=== PATIENT | female | born 1955 | race Caucasian/White ===

== ENCOUNTER 2016-09-14 08:07 | Inpatient (IN) | payer OTHER, BC ==
[2016-09-14] MEDS ORDERED: Sodium Chloride 0.9% 1,000 ML IV SCH (09:15)
[2016-09-14] MEDS: Lidocaine 1% w/EPINEPHrine 50 ML, Sodium Bicarbonate 5 MEQ in Sodium Chloride 0.9% 950 ML INJECT SCH ×2 (09:45→09:49)
[2016-09-14] MEDS ORDERED: Sodium Tetradecyl Sulfate 1% 20 MG/2 ML SDV ONE (09:47)
[2016-09-14] MEDS ORDERED: Sodium Chloride 0.9% 10 ML ONE (09:47)
[2016-09-14] MEDS ORDERED: Lidocaine 1% with EPINEPHrine 1:100,000 50 ML MDV ONE (09:47)
[2016-09-14] MEDS ORDERED: fentaNYL 100 MCG/2 ML SDV ONE (09:51)
[2016-09-14] MEDS ORDERED: Midazolam 1 MG/ML 2 ML SDV ONE (09:51)
[2016-09-14] MEDS ORDERED: Propofol 200 MG/20 ML SDV ONE (09:51)
[2016-09-14] MEDS ORDERED: Sodium Chloride 0.9% 10 ML SDV ONE (09:52)
[2016-09-14] MEDS ORDERED: methylPREDNISolone Sodium Succinate 125 MG/2 ML SDV IM ONE (10:40)
[2016-09-14] MEDS ORDERED: methylPREDNISolone Sodium Succinate 125 MG/2 ML SDV IV ONE (10:40)
[2016-09-14] MEDS ORDERED: methylPREDNISolone Sodium Succinate 125 MG/2 ML SDV IVPUSH ONE (10:45)
--- NOTE | 2016-09-14 10:49 | CR ---
Chest 1V Frontal HISTORY: Possible aspiration COMPARISON: CT scan 04/21/2015. FINDINGS: Cardiac size normal. Slightly rotated film. No focal infiltrates or effusions. No acute co ngestive change.
[2016-09-14] MEDS ORDERED: Albuterol/Ipratropium 3.0-0.5 MG/3 ML Neb Soln NEB ONE (10:50)
[2016-09-14] MEDS ORDERED: Meropenem 1 GM in Sodium Chloride 0.9% 100 ML IV SCH (11:00)
--- NOTE | 2016-09-14 11:52 | PCM.HP ---
H&P History of Present Illness - General Date of Service: 09/14/16 Admit Problem/Dx: Admission Diagnosis/Problem Admission Diagnosis/Problem Aspiration pneumonia Source of Information: Patient, Family, Provider, RN Notes Reviewed History Limitations: Reports: No Limitations - History of Present Illness Initial Comments - Free Text/Narative: This patient is a 61-year-old woman who I was asked to see in the PAR for management of aspiration. She was admitted today as an outpatient to undergo radiofrequency ablation of varicose veins by Dr. Lua. After she received initial sedating medication for the procedure and almost immediate aspiration of gastric contents. Initial saturations were in the 70s she was brought to the PAR and the surgical procedure was canceled. Initially in the PAR had saturations in the upper 80s to 90. She denies any significant history of cardiac or pulmonary disease. She has known esophageal reflux for which she takes omeprazole on a daily basis. - Related Data Allergies/Adverse Reactions: Allergies Allergy/AdvReac Type Severity Reaction Status Date / Time atorvastatin Allergy Cannot Verified 09/14/16 08:28 Remember nafcillin Allergy Cannot Verified 09/14/16 08:28 Remember Penicillins Allergy Cannot Verified 09/14/16 08:28 Remember Sulfa (Sulfonamide Allergy Cannot Verified 09/14/16 08:28 Antibiotics) Remember morphine AdvReac Intermediate Vomiting Verified 09/14/16 08:28 Home Medications: Home Meds Fluorouracil 1 film TOP BID 07/23/14 [History] Lisinopril [Prinivil] 5 mg PO DAILY 07/23/14 [History] Omeprazole [Prilosec] 20 mg PO DAILY 07/23/14 [History] rOPINIRole [Requip] 0.5 - 1 mg PO BEDTIME 07/23/14 [History] Estradiol [Estrace 0.01% Vaginal Crm] 1 applic TOP ASDIRECTED 07/27/14 [History] Multivitamin with Minerals [Multiple Vitamin] 1 tab PO DAILY 09/12/16 [History] Nystatin/Triamcin [Nystatin-Triamcinolone Cream] 1 film TOP BID 09/12/16 [ History] Triamcinolone Acetonide [Triamcinolone Acetonide 0.1% Crm] 1 film TOP TID [History] Past Medical History HEENT History: Reports: Impaired Vision Other HEENT History: wears glasses Cardiovascular History: Reports: High Cholesterol, Hypertension Gastrointestinal History: Reports: Cholelithiasis, Diverticulosis, Gastritis, GERD, Hiatal Hernia Musculoskeletal History: Reports: Arthritis, Fracture Other Musculoskeletal History: osteomyelitis-right knee Endocrine/Metabolic History: Reports: Obesity/BMI 30+ Oncologic (Cancer) History: Reports: Basal Cell Carcinoma Dermatologic History: Reports: Benign Melanoma - Infectious Disease History Infectious Disease History: Reports: Chicken Pox - Past Surgical History HEENT Surgical History: Reports: Eye Surgery, Oral Surgery, Other (See Below) Other HEENT Surgeries/Procedures: bilat. eye Cardiovascular Surgical History: Reports: None Respiratory Surgical History: Reports: None GI Surgical History: Reports: Cholecystectomy, Colonoscopy, EGD, Hernia, Abdominal Female Surgical History: Reports: None Endocrine Surgical History: Reports: None Musculoskeletal Surgical History: Reports: Arthroscopic Knee, Other (See Below) Other Musculoskeletal Surgeries/Procedures:: tendon surg. on right knee Oncologic Surgical History: Reports: Other (See Below) Other Oncologic Surgeries/Procedures: lower lip/mouth surgery Dermatological Surgical History: Reports: None Social & Family History - Family History Family Medical History: Noncontributory - Tobacco Use Smoking Status *Q: Never Smoker Second Hand Smoke Exposure: No - Caffeine Use Caffeine Use: Reports: Coffee - Alcohol Use Days Per Week of Alcohol Use: 0 - Recreational Drug Use Recreational Drug Use: No H&P Review of Systems - Review of Systems: Review Of Systems: See Below General: Denies: Fever, Chills, Weakness HEENT: Reports: No Symptoms Pulmonary: Reports: Shortness of Breath, Wheezing, Cough. Denies: Pleuritic Chest Pain, Sputum, Hemoptysis Cardiovascular: Reports: No Symptoms Gastrointestinal: Reports: No Symptoms Genitourinary: Reports: No Symptoms Musculoskeletal: Reports: No Symptoms Skin: Reports: No Symptoms Psychiatric: Reports: No Symptoms Neurological: Reports: No Symptoms Hematologic/Lymphatic: Reports: No Symptoms Immunologic: Reports: No Symptoms Exam - Exam Exam: See Below - Vital Signs Vital Signs: Last Vital Signs Temp 97.3 F 09/14/16 10:55 Pulse 75 09/14/16 10:55 Resp 16 09/14/16 10:55 BP 114/74 09/14/16 10:55 Pulse Ox 97 09/14/16 10:55 Weight: 200 lb - Exam Quality Assessment: DVT Prophylaxis General: Alert, Oriented, Cooperative, Moderate Distress HEENT: Conjunctiva Clear, Hearing Intact, Mucosa Moist & [place], Normal Nasal Septum, Posterior Pharynx Clear, Pupils Equal, Pupils Reactive Neck: Supple, Trachea Midline, +2 Carotid Pulse wo Bruit Lungs: Normal Respiratory Effort, Rales, Wheezing. No: Decreased Breath Sounds , Crackles, Rhonchi, Rub, Stridor Cardiovascular: Regular Rate, Regular Rhythm, Normal S1, Normal S2. No: Bradycardia, Tachycardia, Systolic Murmur, Diastolic Murmur Abdomen: Normal Bowel Sounds, Soft Back Exam: Normal Inspection, Full Range of Motion, NT Extremities: 3, Normal Inspection, 10 Neurological: Cranial Nerves Intact, Strength Equal Bilateral, Normal Speech, Normal Tone, Sensation Intact. No: Focal Deficit Neuro Extensive - Mental Status: Alert, Oriented x3, Normal Mood/Affect, Normal Cognition, Memory Intact *Q Meaningful Use (ADM) - VTE *Q VTE Criteria *Q: - VTE Risk Assess *Q Each Risk Factor Represents 1 Point: Age 41 - 59 years, Obesity (BMI greater than 30), Serious Lung Disease Including Pneumonia, Less than 1 Month Total Score 1 Point Risk Factors: 3 Each Risk Factor Represents 2 Points: None Total Score 2 Point Risk Factors: 0 Each Risk Factor Represents 3 Points: None Total Score 3 Point Risk Factors: 0 Each Risk Factor Represents 5 Points: None Total Score 5 Point Risk Factors: 0 Venous Thromboembolism Risk Factor Score *Q: 3 - Stroke *Q Stroke Criteria *Q: - AMI *Q AMI Criteria *Q: Problem List Initiated/Reviewed/Updated: Yes Orders Last 24hrs: Active Orders 24 hr Category Date Time Status Patient Status Manage Transfer [TRANSFER] Routine ADT 09/14/16 11:17 Active Cardiac Monitoring [RC] .As Directed Care 09/14/16 11:17 Active RT Aerosol Therapy [RC] ASDIRECTED Care 09/14/16 10:44 Active Lidocaine 1% w/EPINEPHrine [Xylocaine 1% with Med 09/14/16 10:00 Active EPINEPHrine 1:100,000] 50 ml Sodium Bicarbonate [Sodium Bicarbonate 8.4%] 5 meq Sodium Chloride 0.9% [Normal Saline] 950 ml INJECT Q2H Meropenem [Merrem] 1 gm Med 09/14/16 11:00 Active Sodium Chloride 0.9% [Normal Saline] 100 ml IV Q8H Sodium Chloride 0.9% [Normal Saline] 1,000 ml Med 09/14/16 09:15 Active IV ASDIRECTED Resuscitation Status Routine Resus Stat 09/14/16 11:19 Ordered Medication Orders Lidocaine/Epinephrine 50 ml/Sodium Bicarbonate 5 meq/Sodium Chloride 1,005 mls @ 500 mls/hr INJECT Q2H [facility] Stop: 09/14/16 13:59 Last Infusion: 09/14/16 09:49 Dose: 500 mls/hr Admin: 09/14/16 09:49 Dose: 500 mls/hr Admin: 09/14/16 09:45 Dose: 500 mls/hr Sodium Chloride (Normal Saline) 1,000 mls @ 75 mls/hr IV ASDIRECTED [facility] [place] Last Admin: 09/14/16 08:57 Dose: 75 mls/hr Meropenem 1 gm/ Sodium (Chloride) 100 mls @ 200 mls/hr IV Q8H [facility] [place] Last Admin: 09/14/16 10:40 Dose: 200 mls/hr Assessment/Plan Comment:: ASSESSMENT AND PLAN Aspiration of gastric contents-occurred with initial sedation and prior to surgery. Initially had significant decrease in oxygen saturation, this appears to have recovered somewhat. She is been started on IV antibiotic therapy and the PAR and also given nebulizer treatment. -Admit to ICU for close monitoring of respiratory status -Nebulizer therapy with albuterol, duo nebs, and Pulmicort -Meropenem 1 g IV every 8 hours -Initial labs including ABGs pending Varicose veins-scheduled for RFA today with Dr. Lua -Procedure canceled Esophageal reflux -Protonix 40 mg IV every 12 hours MAINTENANCE ISSUES -DVT prophylaxis;Lovenox 40 mg subcutaneous daily -GI prophylaxis;Protonix as above -Symth catheter;not required -Nutrition;clear liquid diet -Nicotine dependence;not required CODE STATUS-full code ADMISSION STATUS-patient will be admitted to inpatient status, expect at least a 2 night hospital stay for evaluation and management of problems as outlined above. At the time of this admission I do not reasonably expected evaluation and management of this problem will require more than a 96 hour hospital stay. DISPOSITION-anticipate discharge to home after the hospital stay. PRIMARY CARE PROVIDER-Dr. Chavez
[2016-09-14] MEDS ORDERED: Albuterol/Ipratropium 3.0-0.5 MG/3 ML Neb Soln NEB SCH (12:00)
[2016-09-14] MEDS ORDERED: Magnesium Hydroxide 400 MG/5 ML Susp 30 ML Cup PO PRN (12:09)
[2016-09-14] MEDS ORDERED: Albuterol 0.083% 2.5 MG/3 ML Neb Soln NEB PRN (12:09)
[2016-09-14] MEDS ORDERED: Ondansetron 4 MG/2 ML SDV IV PRN (12:09)
[2016-09-14] MEDS ORDERED: oxyCODONE 5 MG Tab PO PRN (12:09)
[2016-09-14] MEDS ORDERED: Sodium Chloride 0.9% 10 ML Syringe FLUSH PRN (12:09)
[2016-09-14] MEDS ORDERED: Polyethylene Glycol 3350 Powder 17 GM Packet PO PRN (12:09)
[2016-09-14] MEDS ORDERED: Docusate Sodium 100 MG Cap PO PRN (12:09)
[2016-09-14] MEDS: Enoxaparin 40 MG/0.4 ML Syringe SUBCUT SCH (12:42)
[2016-09-14] MEDS: Pantoprazole 40 MG Vial IV SCH (12:42)
[2016-09-14] MEDS: Budesonide 0.5 MG/2 ML Neb Susp NEB SCH ×2 (12:49→20:11)
[2016-09-14] MEDS: Albuterol/Ipratropium 3.0-0.5 MG/3 ML Neb Soln NEB SCH ×2 (14:26→20:10)
[2016-09-14] MEDS ORDERED: Benzocaine/Cetylpyridinium/Menthol Lozenge MUCMEM PRN (14:27)
[2016-09-14] MEDS ORDERED: Potassium Chloride 20 MEQ Tab.ER PO ONE (15:00)
[2016-09-14] MEDS ORDERED: Calcium Carbonate 500 MG Tab.Chew PO PRN (16:35)
[2016-09-14] MEDS: Lactated Ringers 1,000 ML IV SCH (16:51)
[2016-09-14] MEDS: Meropenem 1 GM in Sodium Chloride 0.9% 100 ML IV SCH (17:07)
[2016-09-14] MEDS: Acetaminophen 325 MG Tab PO PRN (19:20)
[2016-09-14] MEDS ORDERED: rOPINIRole 1 MG Tab PO SCH (21:00)
[2016-09-15] MEDS: Pantoprazole 40 MG Vial IV SCH (00:35)
[2016-09-15] MEDS: Lactated Ringers 1,000 ML IV SCH (00:37)
[2016-09-15] MEDS: Acetaminophen 325 MG Tab PO PRN (00:42)
[2016-09-15] MEDS: Meropenem 1 GM in Sodium Chloride 0.9% 100 ML IV SCH ×2 (01:41→09:41)
[2016-09-15] MEDS: Budesonide 0.5 MG/2 ML Neb Susp NEB SCH (07:09)
[2016-09-15] MEDS: Albuterol/Ipratropium 3.0-0.5 MG/3 ML Neb Soln NEB SCH ×2 (07:09→10:52)
[2016-09-15 08:07] VITALS: BP 145/65
[2016-09-15] MEDS ORDERED: Lisinopril 5 MG Tab PO SCH (09:00)
--- NOTE | 2016-09-15 09:14 | CR ---
Chest 2V HISTORY: Follow-up aspiration. COMPARISON: Chest x-ray 09/14/2016. FINDINGS: Cardiac size is stable. Pulmonary vessels normal distributed. No focal infiltrates or effu sions.
--- NOTE | 2016-09-15 09:46 | PCM.DCSUM1 ---
Discharge Summary - Hospital Course Brief History: Ms. Posey is a 61-year-old woman who was admitted to the hospital for further evaluation and management of an episode of aspiration that occurred prior to outpatient surgery. - Discharge Data Discharge Date: 09/15/16 Discharge Disposition: Home, Self-Care 01 Condition: Fair - Discharge Diagnosis/Problem(s) (1) Aspiration into airway SNOMED Code(s): 411000671 ICD Code: T17.908A - UNSP FB IN RESP TRACT, PART UNSP CAUSING OTH INJURY, INIT Status: Acute Current Visit: Yes - Patient Summary/Data Hospital Course: Ms. Posey is a 61-year-old woman who had been scheduled for outpatient RFA for management of varicose veins. In the process of receiving sedation prior to the surgery she had an episode of aspiration complicated by hypoxia. Initially had oxygen saturations into the 70s, in the PAR was given antibiotic therapy immediately with meropenem, as well as IV Solu-Medrol, and nebulizer therapy. Initial chest x-ray showed no obvious infiltrates or inflammation in the lungs. She was admitted to the intensive care unit for management and monitoring of her respiratory status. By the time she arrived in the intensive care unit her oxygen saturations were in the mid to upper 90s with supplemental oxygen. IV fluids were used for hydration and she remained on meropenem 1 g IV every 8 hours. Nebulizer therapy was used as needed. By the following morning she was feeling well with no significant respiratory symptoms. Follow-up chest x-ray again showed no evidence of obvious infiltrates. White blood cell count was noted to be elevated at 15,000 but this was thought to be secondary to the Solu- Medrol that she'd received in the PAR. Cover for possibility of ongoing infection she will be discharged home with clindamycin 300 mg 4 times daily. She will take probiotics 2 tablets twice daily while on the clindamycin and for several days afterwards. Activity will be as tolerated and she will resume her usual diet. Follow-up appointment will be scheduled with her primary care provider within one week. She is instructed to return to the emergency department immediately if she notes fever cough or increase in shortness of breath. - Patient Instructions Diet: Usual Diet as Tolerated Activity: As Tolerated Other/Special Instructions: Please schedule follow-up appointment with primary care provider within one week. - Discharge Plan Prescriptions/Med Rec: Clindamycin HCl 300 mg PO QID #28 capsule L.acidoph,Paracasei, B.lactis [Probiotic] 2 each PO BID #100 capsule Home Medications: Home Meds Fluorouracil 1 film TOP BID 07/23/14 [History] Lisinopril [Prinivil] 5 mg PO DAILY 07/23/14 [History] Omeprazole [Prilosec] 20 mg PO DAILY 07/23/14 [History] rOPINIRole [Requip] 0.5 - 1 mg PO BEDTIME 07/23/14 [History] Estradiol [Estrace 0.01% Vaginal Crm] 1 applic TOP ASDIRECTED 07/27/14 [History] Multivitamin with Minerals [Multiple Vitamin] 1 tab PO DAILY 09/12/16 [History] Nystatin/Triamcin [Nystatin-Triamcinolone Cream] 1 film TOP BID 09/12/16 [ History] Triamcinolone Acetonide [Triamcinolone Acetonide 0.1% Crm] 1 film TOP TID [History] Clindamycin HCl 300 mg PO QID #28 capsule 09/15/16 [Rx] L.acidoph,Paracasei, B.lactis [Probiotic] 2 each PO BID #100 capsule 09/15/16 [ Rx] Referrals: Sheldon Chavez MD [Primary Care Provider] - (Please schedule appointment within 1 week, for follow-up of aspiration.) - Patient Data Vitals - Most Recent: Last Vital Signs Temp 98.1 F 09/15/16 08:00 Pulse 102 H 09/15/16 08:00 Resp 19 09/15/16 08:00 BP 145/65 H 09/15/16 08:00 Pulse Ox 93 L 09/15/16 08:00 Weight - Most Recent: 207 lb 11.195 oz I&O - Last 24 hours: Intake & Output 09/14/16 09/15/16 09/15/16 22:59 06:59 14:59 Output Total 1400 900 600 Balance -1400 -900 -600 Lab Results - Last 24 hrs: Laboratory Results - last 24 hr 09/14/16 09/14/16 09/14/16 Range/Units 12:09 12:25 12:25 WBC 9.0 (4.5-11.0) K/uL RBC 4.84 (3.30-5.50) M/uL Hgb 13.3 (12.0-15.0) g/dL Hct 41.1 (36.0-48.0) % MCV 85 (80-98) fL MCH 28 (27-31) pg MCHC 32 (32-36) % Plt Count 230 (150-400) K/uL Neut % (Auto) 84 H (36-66) % Lymph % (Auto) 13 L (24-44) % [place] % (Auto) 2 (2-6) % Eos % (Auto) 1 L (2-4) % Baso % (Auto) 0 (0-1) % Puncture Site Lt radial ABG pH 7.389 (7.350-7.450) ABG pCO2 40.3 (35.0-42.0) mmHg ABG pO2 83.9 (75.0-100.0) mmHg ABG HCO3 23.8 (22.0-26.0) mmol/L ABG Total CO2 21.3 (21.0-25.0) mmol/L ABG O2 Saturation 95.7 (95.0-98.0) % ABG O2 Content 17.6 (15.0-23.0) %vol ABG Base Excess -0.5 mm/L ABG Hemoglobin 13.2 (12.0-16.0) g/dL ABG Oxyhemoglobin 94.6 % ABG Carboxyhemoglobin 0.2 (0.0-1.6) % ABG Methemoglobin 1.0 % Rashid Test Passed O2 Delivery Device Nasal cannula Oxygen Flow Rate 2 L Sodium 141 (140-148) mmol/L Potassium 3.5 L (3.6-5.2) mmol/L Chloride 105 (100-108) mmol/L Carbon Dioxide 28 (21-32) mmol/L Anion Gap 11.5 (5.0-14.0) mmol/L BUN 12 (7-18) mg/dL Creatinine 1.0 (0.6-1.0) mg/dL Est Cr Clr Drug Dosing 58.91 mL/min Estimated GFR (MDRD) 57 L (>60) Glucose 116 H (74-106) mg/dL Calcium 8.5 (8.5-10.1) mg/dL Magnesium 1.9 (1.8-2.4) mg/dL Total Bilirubin 0.4 (0.2-1.0) mg/dL AST 19 (15-37) U/L ALT 24 (12-78) U/L Alkaline Phosphatase 68 (46-116) U/L C-Reactive Protein 0.45 H (0.0-0.3) mg/dL Total Protein 6.9 (6.4-8.2) g/dL Albumin 3.5 (3.4-5.0) g/dL Globulin 3.4 (2.3-3.5) g/dL Albumin/Globulin Ratio 1.0 L (1.2-2.2) 09/15/16 09/15/16 Range/Units 05:00 05:00 WBC 15.5 H (4.5-11.0) K/uL RBC 4.62 (3.30-5.50) M/uL Hgb 12.6 (12.0-15.0) g/dL Hct 39.2 (36.0-48.0) % MCV 85 (80-98) fL MCH 27 (27-31) pg MCHC 32 (32-36) % Plt Count 244 (150-400) K/uL Neut % (Auto) 85 H (36-66) % Lymph % (Auto) 11 L (24-44) % [place] % (Auto) 4 (2-6) % Eos % (Auto) 0 L (2-4) % Baso % (Auto) 0 (0-1) % Puncture Site ABG pH (7.350-7.450) ABG pCO2 (35.0-42.0) mmHg ABG pO2 (75.0-100.0) mmHg ABG HCO3 (22.0-26.0) mmol/L ABG Total CO2 (21.0-25.0) mmol/L ABG O2 Saturation (95.0-98.0) % ABG O2 Content (15.0-23.0) %vol ABG Base Excess mm/L ABG Hemoglobin (12.0-16.0) g/dL ABG Oxyhemoglobin % ABG Carboxyhemoglobin (0.0-1.6) % ABG Methemoglobin % Rashid Test O2 Delivery Device Oxygen Flow Rate L Sodium 143 (140-148) mmol/L Potassium 4.8 (3.6-5.2) mmol/L Chloride 108 (100-108) mmol/L Carbon Dioxide 29 (21-32) mmol/L Anion Gap 5.9 (5.0-14.0) mmol/L BUN 11 (7-18) mg/dL Creatinine 1.0 (0.6-1.0) mg/dL Est Cr Clr Drug Dosing 58.91 mL/min Estimated GFR (MDRD) 57 L (>60) Glucose 113 H (74-106) mg/dL Calcium 9.1 (8.5-10.1) mg/dL Magnesium (1.8-2.4) mg/dL Total Bilirubin (0.2-1.0) mg/dL AST (15-37) U/L ALT (12-78) U/L Alkaline Phosphatase (46-116) U/L C-Reactive Protein (0.0-0.3) mg/dL Total Protein (6.4-8.2) g/dL Albumin (3.4-5.0) g/dL Globulin (2.3-3.5) g/dL Albumin/Globulin Ratio (1.2-2.2) Med Orders - Current: Current Medications Acetaminophen (Tylenol) 650 mg PO Q4H PRN PRN Reason: Pain (Mild 1-3)/fever Last Admin: 09/15/16 00:42 Dose: 650 mg Albuterol (Proventil Neb Soln) 2.5 mg NEB Q2H PRN PRN Reason: Shortness Of Breath/wheezing Albuterol/Ipratropium (Duoneb 3.0-0.5 Mg/3 Ml) 3 ml NEB QIDRT [facility] Last Admin: 09/15/16 07:09 Dose: 3 ml Benzocaine/Menthol (Cepacol Sore Throat) 1 lozenge MUCMEM 5XDAY PRN PRN Reason: Sore Throat Budesonide (Pulmicort) 0.5 mg NEB BIDRT [facility] Last Admin: 09/15/16 07:09 Dose: 0.5 mg Calcium Carbonate/Glycine (Tums) 1,000 mg PO Q2H PRN PRN Reason: Indigestion Last Admin: 09/14/16 17:06 Dose: 1,000 mg Docusate Sodium (Colace) 100 mg PO BID PRN PRN Reason: Constipation Enoxaparin Sodium (Lovenox) 40 mg SUBCUT DAILY [facility] Last Admin: 09/14/16 12:42 Dose: 40 mg Meropenem 1 gm/ Sodium (Chloride) 100 mls @ 200 mls/hr IV Q8H [facility] Last Admin: 09/15/16 09:41 Dose: 200 mls/hr Lactated Ringer's (Ringers, Lactated) 1,000 mls @ 125 mls/hr IV ASDIRECTED [facility] Last Admin: 09/15/16 00:37 Dose: 125 mls/hr Lisinopril (Prinivil) 5 mg PO DAILY [facility] Magnesium Hydroxide (Milk Of Magnesia) 30 ml PO Q12H PRN PRN Reason: Constipation Ondansetron HCl (Zofran) 4 mg IV Q4H PRN PRN Reason: Nausea/Vomiting Oxycodone HCl (Oxycodone) 5 mg PO Q4H PRN PRN Reason: Pain (moderate 4-6) Pantoprazole Sodium (Protonix Iv) 40 mg IV Q12H [facility] Last Admin: 09/15/16 00:35 Dose: 40 mg Polyethylene Glycol (Miralax) 17 gm PO DAILY PRN PRN Reason: Constipation Ropinirole HCl (Requip) 1 mg PO BEDTIME [facility] Last Admin: 09/14/16 20:11 Dose: 1 mg Sodium Chloride (Saline Flush) 10 ml FLUSH ASDIRECTED PRN PRN Reason: Keep Vein Open Discontinued Medications Albuterol/Ipratropium (Duoneb 3.0-0.5 Mg/3 Ml) 3 ml NEB ONETIME ONE Stop: 09/14/16 10:51 Last Admin: 09/14/16 10:49 Dose: 3 ml Albuterol/Ipratropium (Duoneb 3.0-0.5 Mg/3 Ml) 3 ml NEB QIDRT [facility] Fentanyl (Sublimaze) Confirm Administered Dose 100 mcg .ROUTE .STK-MED ONE Stop: 09/14/16 09:52 Heparin Sodium (Porcine) (Heparin Lock Flush 100 Units/Ml) Confirm Administered Dose 3,000 units .ROUTE .STK-MED ONE Stop: 09/14/16 09:48 Last Admin: 09/14/16 09:50 Dose: 3,000 units Sodium Chloride (Normal Saline) 1,000 mls @ 75 mls/hr IV ASDIRECTED [facility] Last Admin: 09/14/16 08:57 Dose: 75 mls/hr Sodium Chloride (Normal Saline) Confirm Administered Dose 10 mls @ as directed .ROUTE .STK-MED ONE Stop: 09/14/16 09:48 Meropenem 1 gm/ Sodium (Chloride) 100 mls @ 200 mls/hr IV Q8H [facility] Last Admin: 09/14/16 10:40 Dose: 200 mls/hr Lidocaine/Epinephrine (Xylocaine 1% With Epinephrine 1:100,000) Confirm Administered Dose 50 ml .ROUTE .STK-MED ONE Stop: 09/14/16 09:48 Methylprednisolone Sodium Succinate (Solu-Medrol) 62.5 mg IVPUSH ONETIME ONE Stop: 09/14/16 10:46 Last Admin: 09/14/16 10:33 Dose: 62.5 mg Midazolam HCl (Versed 1 Mg/Ml) Confirm Administered Dose 2 mg .ROUTE .STK-MED ONE Stop: 09/14/16 09:52 Potassium Chloride (Klor-Con M20) 40 meq PO ONETIME ONE Stop: 09/14/16 15:01 Last Admin: 09/14/16 15:12 Dose: 40 meq Propofol (Diprivan 20 Ml) Confirm Administered Dose 200 mg .ROUTE .STK-MED ONE Stop: 09/14/16 09:52 Sodium Tetradecyl Sulfate (Sotradecol) Confirm Administered Dose 20 mg .ROUTE .STK-MED ONE Stop: 09/14/16 09:48 *Q Meaningful Use (DIS) - VTE *Q VTE Criteria *Q: - Stroke *Q Stroke Criteria *Q: - AMI *Q AMI Criteria *Q:
[2016-09-15] MEDS: Enoxaparin 40 MG/0.4 ML Syringe SUBCUT SCH (11:26)
== END 2016-09-15 11:15 | disposition home or self-care (01) | DRG 143 ==
LOC: JP.SDS 08:07 → JP.SDSSCHI 08:07 → EDSTATUS 10:00 → JP.ICU 11:17
PROVIDERS: ADMIT Surgery; ATTEND Surgery
DX: T17.908A Unspecified foreign body in respiratory tract, part unspecified causing other injury, initial encounter (principal); I83.90 Asymptomatic varicose veins of unspecified lower extremity; I10 Essential (primary) hypertension; K21.9 Gastro-esophageal reflux disease without esophagitis; K44.9 Diaphragmatic hernia without obstruction or gangrene; H54.7 Unspecified visual loss; Z85.820 Personal history of malignant melanoma of skin; Z85.828 Personal history of other malignant neoplasm of skin; Z88.1 Allergy status to other antibiotic agents; Z88.5 Allergy status to narcotic agent; Z88.0 Allergy status to penicillin; Z88.2 Allergy status to sulfonamides; Z88.8 Allergy status to other drugs, medicaments and biological substances; Z53.8 Procedure and treatment not carried out for other reasons; X58.XXXA Exposure to other specified factors, initial encounter; Y92.234 Operating room of hospital as the place of occurrence of the external cause
CPT/HCPCS: 36415; 36600; 71010; 71010-26; 71020; 71020-26; 80048; 80053; 82803; 83735; 85025; 86140; 87040; 94640-76; A9270-GY; C9113; J1642; J1650; J2185; J2250; J2704; J2930; J3010; J3490; J7030; J7040; J7050; J7120; J7620

== ENCOUNTER 2017-08-21 07:49 | Day surgery (SDC) | payer BC ==
[~2017-08-21 07:49] MED LIST: Acetaminophen 500 MG Tab PO ONE
[2017-08-21] MEDS ORDERED: Dextrose 5%-Lactated Ringers 1,000 ML IV SCH (08:15)
[2017-08-21] MEDS ORDERED: Bupivacaine 0.5%/EPINEPHrine 1:200,000 50 ML MDV ONE (08:58)
[2017-08-21] MEDS ORDERED: ceFAZolin 2 GM in Premix Bag 1 BAG IV ONE (09:15)
[2017-08-21] MEDS ORDERED: Neostigmine Methylsulfate 1 MG/ML 5 ML Syringe ONE (09:35)
[2017-08-21] MEDS ORDERED: Propofol 200 MG/20 ML SDV ONE (09:35)
[2017-08-21] MEDS ORDERED: Glycopyrrolate 0.2 MG/ML 5 ML MDV ONE (09:35)
[2017-08-21] MEDS ORDERED: Dexamethasone 4 MG/ML SDV ONE (09:35)
[2017-08-21] MEDS ORDERED: Succinylcholine 200 MG/10 ML MDV ONE (09:35)
[2017-08-21] MEDS ORDERED: fentaNYL 250 MCG/5 ML SDV ONE (09:35)
[2017-08-21] MEDS ORDERED: Rocuronium 50 MG/5 ML Vial ONE (09:35)
[2017-08-21] MEDS ORDERED: Ondansetron 4 MG/2 ML SDV ONE (09:35)
[2017-08-21] MEDS ORDERED: Mupirocin Oint 22 GM Tube TOP ONE (11:30)
[2017-08-21] MEDS ORDERED: Ondansetron 4 MG/2 ML SDV IVPUSH ONE (13:05)
[2017-08-21 13:22] VITALS: BP 108/62
--- NOTE | 2017-08-28 09:15 | OR ---
DATE OF PROCEDURE: 08/21/2017 PREOPERATIVE DIAGNOSIS: Soft tissue mass, right chest wall and adjacent upper abdominal wall. POSTOPERATIVE DIAGNOSIS: Subfascial lipoma, right anterior chest wall. OPERATIVE PROCEDURE: Excision of subfascial lipoma, right anterior chest wall ([id number]). ANESTHESIA: General. SIDE LASTER TACK: JULIANO Beasley. INDICATION FOR PROCEDURE: This is a 62-year-old presenting with a soft tissue mass located in the right lower anterior chest wall. When the patient is sitting, this appears to extend somewhat onto the anterior abdominal wall, and the idea that this might be a trocar hernia has also been entertained. Plan is to proceed with exploration of the area with removal of any soft tissue masses identified, along with hernia repair if necessary. Potential risks including bleeding, infection, possible recurrence of the process over time were reviewed, and the patient wishes to proceed. The patient had a serious aspiration episode with the previous procedure, in which she received IV sedation, and to provide adequate airway control, will proceed with a general anesthetic in this case. DETAILS OF PROCEDURE: The patient was taken to the operating room and placed in a supine position. After general endotracheal anesthesia was induced, the right anterior chest wall and upper abdomen were prepped and draped. The area of concern had been mapped out in ACU, and a transversely oriented incision more or less running parallel to the costal margin was made and carried down through the skin and subcutaneous tissue. In the plane underlying the investing fascia, then a soft tissue mass consistent with lipoma was encountered. This was gradually dissected free and removed and what appeared to be an intact manner. Small amount of surrounding normal fat at certain locations was also taken. The skin was directly down onto the chest wall musculature, i.e. was between the fascia and the actual muscle itself, and upon removal, it was measured 7 cm. The wound was then inspected, no bleeding was noted, and the incision was closed with 2 layers of 3-0 Vicryl stitch deep and then anibal for the skin. Dressing was applied. The patient was taken to the recovery room in satisfactory condition. Jaxson Tatum MD /[id number]
== END 2017-08-21 13:45 | disposition home or self-care (01) ==
LOC: JP.SDS 07:49
PROVIDERS: ATTEND Surgery
DX: D17.1 Benign lipomatous neoplasm of skin and subcutaneous tissue of trunk (principal); I10 Essential (primary) hypertension; E66.9 Obesity, unspecified; K21.9 Gastro-esophageal reflux disease without esophagitis
CPT/HCPCS: 21554; 36415; 80053; 83735; 84100; 85027; 88304; A9270; J0330; J0690; J1100; J2405; J2704; J2710; J3010; J7042; J2020

== ENCOUNTER 2019-10-06 06:01 | Inpatient (IN) | payer BC ==
[2019-10-06] MEDS ORDERED: Lactated Ringers 1,000 ML IV SCH (06:30)
[2019-10-06] MEDS: Nozin Nasal Sanitizer NASBOTH SCH ×3 (06:47→20:44)
[2019-10-06] MEDS ORDERED: Povidone-Iodine 10% Soln 118.25 ML Bottle ONE ×2 (06:50→09:09)
[2019-10-06] MEDS ORDERED: Midazolam 1 MG/ML 2 ML SDV ONE (07:33)
[2019-10-06] MEDS ORDERED: fentaNYL 100 MCG/2 ML SDV ONE (07:33)
[2019-10-06] MEDS ORDERED: Scopolamine 1.5 MG Transdermal Patch TRDERM SCH (08:00)
[2019-10-06] MEDS ORDERED: Tranexamic Acid 1,000 MG in Sodium Chloride 0.9% 50 ML IV ONE (08:00)
[2019-10-06] MEDS ORDERED: Ondansetron 4 MG/2 ML SDV ONE (08:18)
[2019-10-06] MEDS ORDERED: Acetaminophen/HYDROcodone 325-5 MG Tab PO PRN (09:25)
[2019-10-06] MEDS ORDERED: Ondansetron 4 MG/2 ML SDV IVPUSH PRN (09:25)
[2019-10-06] MEDS ORDERED: Magnesium Hydroxide 400 MG/5 ML Susp 30 ML Cup PO PRN (09:25)
[2019-10-06] MEDS ORDERED: Furosemide 20 MG Tab PO PRN (09:32)
[2019-10-06] MEDS ORDERED: HYDROmorphone 1 MG/ML Syringe IVPUSH PRN (09:34)
[2019-10-06] MEDS ORDERED: Meperidine PF 100 MG/ML Syringe IM ONE (09:51)
[2019-10-06] MEDS: SCOPOLAMINE PATCH CHECK TOP SCH (10:58)
[2019-10-06] MEDS: Acetaminophen/oxyCODONE 325-5 MG Tab PO PRN ×3 (11:24→20:21)
[2019-10-06] MEDS ORDERED: Tranexamic Acid 1,000 MG in Sodium Chloride 0.9% 50 ML IV SCH (12:00)
[2019-10-06] MEDS: Ketorolac 30 MG/ML SDV IVPUSH SCH ×3 (12:13→23:04)
[2019-10-06] MEDS: Sodium Chloride 0.9% 1,000 ML IV SCH ×2 (13:45→22:47)
--- NOTE | 2019-10-06 14:14 | CR ---
Knee 1V or 2V Rt CLINICAL HISTORY: Total knee postoperative FINDINGS: Patient has undergone recent total knee arthroplasty. Components appear well seated. There is intra-articular and subcutaneous cutaneous air. IMPRESSION: STATUS post recent total knee arthroplasty
[2019-10-06] MEDS: Docusate Sodium 100 MG Cap PO SCH (20:44)
[2019-10-06] MEDS: rOPINIRole 0.5 MG Tab PO SCH (20:44)
[2019-10-06] MEDS: Simvastatin 20 MG Tab PO SCH (21:32)
[2019-10-06] MEDS: Lisinopril 5 MG Tab PO SCH (21:55)
[2019-10-07] MEDS: Acetaminophen/oxyCODONE 325-5 MG Tab PO PRN ×3 (03:36→21:45)
[2019-10-07] MEDS: Ketorolac 30 MG/ML SDV IVPUSH SCH ×4 (05:01→23:53)
[2019-10-07] MEDS: Calcium Carbonate 500 MG Tab.Chew PO PRN ×2 (05:35→11:58)
[2019-10-07] MEDS ORDERED: Sodium Chloride 0.9% 500 ML IV ONE (05:36)
[2019-10-07] MEDS: Nozin Nasal Sanitizer NASBOTH SCH ×2 (08:03→21:43)
[2019-10-07] MEDS: Pantoprazole 40 MG Tab.CR PO SCH (08:03)
[2019-10-07] MEDS ORDERED: Lisinopril 5 MG Tab PO SCH (09:00)
[2019-10-07] MEDS ORDERED: Simvastatin 20 MG Tab PO SCH (09:00)
[2019-10-07] MEDS: SCOPOLAMINE PATCH CHECK TOP SCH (09:21)
[2019-10-07] MEDS: Docusate Sodium 100 MG Cap PO SCH ×2 (09:22→21:45)
[2019-10-07] MEDS: Enoxaparin 30 MG/0.3 ML Syringe SUBCUT SCH (09:23)
[2019-10-07] MEDS: Sodium Chloride 0.9% 1,000 ML IV SCH (11:45)
[2019-10-07] MEDS: Simvastatin 20 MG Tab PO SCH (21:46)
[2019-10-07] MEDS: Lisinopril 5 MG Tab PO SCH (21:46)
[2019-10-07] MEDS: rOPINIRole 0.5 MG Tab PO SCH (21:46)
[2019-10-08] MEDS: Ketorolac 30 MG/ML SDV IVPUSH SCH (05:53)
[2019-10-08] MEDS: Pantoprazole 40 MG Tab.CR PO SCH (07:29)
[2019-10-08] MEDS: Nozin Nasal Sanitizer NASBOTH SCH (10:00)
[2019-10-08] MEDS: Docusate Sodium 100 MG Cap PO SCH (10:01)
[2019-10-08] MEDS: Enoxaparin 30 MG/0.3 ML Syringe SUBCUT SCH (10:01)
[2019-10-08] MEDS: SCOPOLAMINE PATCH CHECK TOP SCH (10:02)
[2019-10-08] MEDS: Acetaminophen/oxyCODONE 325-5 MG Tab PO PRN (11:54)
[2019-10-08 11:57] VITALS: BP 98/55; PULSE 80
--- NOTE | 2019-10-18 20:30 | OR ---
DATE OF PROCEDURE: 10/06/2019 SURGEON: Jona Smith MD PREOPERATIVE DIAGNOSIS: Osteoarthritis, right knee. POSTOPERATIVE DIAGNOSIS: Osteoarthritis, right knee. PROCEDURE: Right total knee arthroplasty using Svetlana Persona components with a size 7 femur, D tibia, 12 mm polyethylene, and 32 mm patella. ANESTHESIA: Spinal with sedation. INDICATIONS: Yeimi is a 64-year-old female with a history of progressive pain in her right knee for the past several months. She has a long history of right knee problems dating back several years, including a tibial tubercle osteotomy and history of osteomyelitis of the tibial metaphysis following this. She has not had any flare-ups of the osteomyelitis for years. She has been having increasing pain in the anterior joint and medially. Recent imaging and examination are consistent with progressive articular cartilage loss and she now presents for right total knee arthroplasty. Risks, benefits, potential complications of the procedure were discussed. PROCEDURE IN DETAIL: After adequate anesthesia was obtained, patient was placed in the supine with a tourniquet about the right upper thigh. Right leg was prepped and draped in a sterile fashion. Leg was exsanguinated and tourniquet inflated to 300 mmHg pressure. A longitudinal incision was made over the patella, carried down through the subcutaneous tissue and hemostasis was obtained with electrocautery. A medial parapatellar arthrotomy was performed. Some scar tissue and thickening of the capsule and patellar tendon are noted. Anterior horn of the medial meniscus was excised and a medial release was performed. Soft tissues were excised from the periphery of the patella and oscillating saw was used to make a posterior patella cut. Knee was flexed and the intramedullary canal of the femur was drilled. The intramedullary guide was placed and the distal femur was then cut. Attention was turned to the tibia. The extramedullary tibial alignment jig was placed and aligned and secured. The proximal tibia was then cut with an oscillating saw and remaining medial and lateral meniscus were excised. Attention was returned to the femur, which was measured to a size 7. The 7 cutting jig is secured to the femur, distal femoral cuts were made including an intercondylar notch cut for a posterior cruciate-sacrificing component. The femoral trial was placed with good fit. The tibia is then sized to D tray which is secured with pins. Bushing is placed and the tibia is drilled and the pins are then cut completing preparation of the tibial metaphysis. Knee was thoroughly irrigated. The bone surfaces are dried. Components were cemented in place. Excess cement was removed. The knee was held in full extension as the cement cured with a trial insert. After the cement was set, the knee was taken through range of motion and the 12 mm polyethylene provided balance in flexion and extension with full extension and the patella tracked well without lateral release. The trial was removed. The knee was irrigated again. Polyethylene was snapped into position, and the knee was then irrigated with a dilute Betadine solution, which was left in place for 2-1/2 minutes. This was irrigated and the knee was then closed with two Ethibond in interrupted fashion. Skin was closed with 2-0 Vicryl and a running 3-0 Monocryl. Steri-Strips were applied. Sterile dressing was then placed with a light compressive dressing. Patient tolerated procedure well and there were no complications. Taken from the operating room in stable condition. Jona Smith MD /[id number]
== END 2019-10-08 13:00 | disposition home or self-care (01) | DRG 302 ==
LOC: JP.SDS 06:01 → JP.MS 09:25 → JP.SDS 10-07 12:00 → JP.MS 10-07 12:00
PROVIDERS: ADMIT Specialist; ATTEND Specialist
PROC: 0SRC0J9 Replacement of Right Knee Joint with Synthetic Substitute, Cemented, Open Approach (ICD-10-PCS; principal; 2019-10-07)
DX: M17.11 Unilateral primary osteoarthritis, right knee (principal); E78.00 Pure hypercholesterolemia, unspecified; I10 Essential (primary) hypertension; G25.81 Restless legs syndrome; K21.9 Gastro-esophageal reflux disease without esophagitis; E78.5 Hyperlipidemia, unspecified; E66.9 Obesity, unspecified; Z88.5 Allergy status to narcotic agent; Z88.0 Allergy status to penicillin; Z88.2 Allergy status to sulfonamides; Z85.3 Personal history of malignant neoplasm of breast; Z68.35 Body mass index [BMI] 35.0-35.9, adult
CPT/HCPCS: 36415; 73560-26-RT; 73560-RT; 86850; 86900; 86901; 97110-GP; 97116-GP; 97161-GP; 97530-GP; 97535-GP; A9270-GY; C1713; C1776; J1650; J1885; J2175; J2250; J2405; J3010; J3370; J7030; J7040; J7050; J7120

== ENCOUNTER 2019-11-25 07:20 | Inpatient (IN) | payer BC ==
[~2019-11-25 07:20] MED LIST changes: -Acetaminophen 500 MG Tab PO ONE; +Dexamethasone 4 MG/ML SDV ONE; +Glycopyrrolate 0.2 MG/ML 5 ML MDV ONE; +Neostigmine Methylsulfate 1 MG/ML 5 ML Syringe ONE; +Ondansetron 4 MG/2 ML SDV ONE; +Propofol 200 MG/20 ML SDV ONE; +Rocuronium 50 MG/5 ML Vial ONE; +Succinylcholine 200 MG/10 ML MDV ONE; +fentaNYL 250 MCG/5 ML SDV ONE
[2019-11-25] MEDS ORDERED: Acetaminophen 500 MG Tab PO ONE (07:45)
[2019-11-25] MEDS: Dextrose 5%-Lactated Ringers 1,000 ML IV SCH ×2 (08:26→13:07)
[2019-11-25] MEDS ORDERED: Ketamine 50 MG in Sodium Chloride 0.9% 49.5 ML IV SCH (09:00)
[2019-11-25] MEDS ORDERED: Ketamine 500 MG/5 ML MDV IV SCH (09:00)
[2019-11-25] MEDS: cefOXitin 2 GM in Sodium Chloride 0.9% 50 ML IV ONE ×2 (09:08→13:07)
[2019-11-25] MEDS ORDERED: Labetalol 20 MG/4 ML Syringe ONE (09:58)
[2019-11-25] MEDS ORDERED: fentaNYL 100 MCG/2 ML SDV ONE (10:18)
[2019-11-25] MEDS ORDERED: HYDROmorphone 1 MG/ML Syringe IV PRN (12:00)
[2019-11-25] MEDS ORDERED: Ondansetron 4 MG/2 ML SDV IVPUSH PRN (12:00)
[2019-11-25] MEDS ORDERED: hydrOXYzine HCL 100 MG/2 ML SDV IM PRN (12:00)
[2019-11-25] MEDS ORDERED: HYDROmorphone 0.5 MG/0.5 ML Syringe IVPUSH PRN (12:00)
[2019-11-25] MEDS: HYDROmorphone 2 MG Tab PO PRN ×2 (13:56→22:26)
[2019-11-25] MEDS: Metoclopramide 10 MG/2 ML SDV IVPUSH SCH ×2 (13:58→21:01)
[2019-11-25] MEDS ORDERED: Pantoprazole 40 MG Vial IVPUSH SCH (14:00)
[2019-11-25] MEDS: ceFAZolin 2 GM in Premix Bag 1 BAG IV SCH ×2 (15:44→23:08)
[2019-11-25] MEDS: rOPINIRole 0.5 MG Tab PO SCH (21:01)
[2019-11-26] MEDS: Dextrose 5%-Lactated Ringers 1,000 ML IV SCH
[2019-11-26] MEDS: Acetaminophen 325 MG Tab PO PRN ×5 (01:47→18:35)
[2019-11-26] MEDS: Metoclopramide 10 MG/2 ML SDV IVPUSH SCH ×2 (06:01→13:31)
[2019-11-26] MEDS ORDERED: Ondansetron 4 MG Tab.DIS PO PRN (07:13)
[2019-11-26] MEDS ORDERED: Dextrose 5%-Lactated Ringers 1,000 ML IV SCH (07:15)
--- NOTE | 2019-11-26 07:54 | PN ---
DATE OF SERVICE: 11/26/2019 SUBJECTIVE: Yeimi is postoperative day 1. She reports her pain is controlled. She is having some left shoulder pain, and Tylenol and ice packs are helping resolve that. Vital signs have been stable, been afebrile, up ambulating, has no other questions or concerns. OBJECTIVE: GENERAL: Yeimi Posey is a pleasant 64-year-old female. VITAL SIGNS: TPR at 0658, 97.4, 82, 16, and blood pressure 144/84. HEENT: Negative. NECK: Supple. HEART: Regular rate and rhythm. LUNGS: Clear. ABDOMEN: Dressings dry and intact. Abdominal binder is on. EXTREMITIES: Without peripheral edema. ASSESSMENT: 1. Esophagogastroduodenoscopy. 2. Laparoscopic Karlos fundoplication and repair of paraesophageal diaphragmatic hernia with mesh for gastroesophageal reflux disease with paraesophageal hernia refractory to medical management. Date of procedure 11/25/2019. Surgeon: Jaxson Tatum MD. PLAN: 1. Decrease IV to 100 mL per hour. 2. Dressing off, may shower. 3. Consult dietitian. 4. Zofran ODT 4 mg q.4 hours p.r.n. nausea. 5. Continue use of incentive spirometer. May saline lock if oral intake adequate. 6. We will evaluate p.r.n. or in a.m. Kavya Davis PA-C /[id number]
[2019-11-26] MEDS: ceFAZolin 2 GM in Premix Bag 1 BAG IV SCH (08:04)
[2019-11-26] MEDS: Furosemide 20 MG Tab PO SCH (08:06)
[2019-11-26] MEDS: Lisinopril 5 MG Tab PO SCH (08:06)
[2019-11-26] MEDS: Pantoprazole 40 MG Tab.CR PO SCH (13:52)
[2019-11-26] MEDS: rOPINIRole 0.5 MG Tab PO SCH (20:06)
[2019-11-27] MEDS: Acetaminophen 325 MG Tab PO PRN ×3 (00:44→19:43)
[2019-11-27] MEDS: Pantoprazole 40 MG Tab.CR PO SCH (07:24)
--- NOTE | 2019-11-27 08:36 | DISCH ---
ADMISSION DIAGNOSES: Gastroesophageal reflux disease refractory to medical management, hypertension, osteoarthritis, and history of basal cell carcinoma. PROCEDURES: 1. Esophagogastroduodenoscopy. 2. Laparoscopic Karlos fundoplication and repair of paraesophageal diaphragmatic hernia with mesh. 3. Gastroesophageal reflux disease with periesophageal diaphragmatic hernia refractory to medical management. DATE OF PROCEDURE: 11/25/2019. SURGEON: Jaxson Tatum MD. HISTORY: Yeimi Posey is a pleasant 64-year-old female with GERD refractory to medical management. After preoperative evaluation and discussion of possible risks and possible complications, she wished to proceed with surgical procedure. HOSPITAL COURSE: Yeimi had her surgery on 11/25/2019. She had no operative complications. On postoperative day #1, she was started on a full liquid diet. Dressing was off. She received dietary instruction. She had no operative complications. Vital signs remained stable. Pain was managed with Tylenol and she was able to be discharged to home on 11/27/2019. PHYSICAL EXAMINATION: GENERAL: Yeimi Posey is a pleasant 64-year-old female. VITAL SIGNS: Height is 5 feet 6.93 inches. Weight is 210 pounds. TPR 96.7, 85, 16, blood pressure 142/84. HEENT: Negative. NECK: Supple. HEART: Regular rate and rhythm. LUNGS: Clear. ABDOMEN: Trocar incisions look good. Sutures intact. Abdominal binder is on. EXTREMITIES: Without peripheral edema. DISPOSITION: Discharged to home. CONDITION: Stable and improving. FOLLOWUP APPOINTMENT: With Kavya Davis PA-C, at [facility] on 12/09/2019 at 9:00 a.m. HOME MEDICATIONS: 1. Levsin 0.125 mg sublingual every 4 hours p.r.n. esophageal spasms #30. 2. Tylenol 650 mg q.4 hours p.r.n. pain. 3. Vitamin B12 of 5000 mcg oral daily. 4. Ferrous fumarate 324 mg oral twice daily. 5. Lasix 20 mg oral daily. 6. Prilosec 20 mg oral daily. 7. Simvastatin 20 mg oral daily. 8. Fluorouracil one film topical twice daily as needed for skin cancer. 9. Prinivil 5 mg oral daily. 10.Lisinopril 1.5 mg oral at bedtime. DIET: Step 2 gastric bypass diet for 2 weeks. Drink 8 to 10 glasses of water a day. ACTIVITY: No lifting greater than 10 pounds for 2 weeks. Other activity: Walk at least 6 times daily inside your home or outside if someone is with. Driving: Do not drive for 1 week. Shower bathing: May shower. Notify provider if any fever, increased pain, nausea, or vomiting. Keep site clean and dry. Wound incision care. Wear abdominal binder for 2 weeks and then as tolerated. SPECIAL INSTRUCTIONS: Use incentive spirometer 10 times every hour while awake for 1 week.
[2019-11-27] MEDS: Furosemide 20 MG Tab PO SCH (08:48)
[2019-11-27] MEDS: Lisinopril 5 MG Tab PO SCH (09:25)
[2019-11-27] MEDS ORDERED: Dextrose 5%-Lactated Ringers 1,000 ML IV SCH (10:00)
[2019-11-27] MEDS ORDERED: Furosemide 40 MG/4 ML VIAL IVPUSH ONE (10:15)
[2019-11-27] MEDS ORDERED: Sodium Chloride 0.9% 100 ML IV ONE (13:06)
[2019-11-27] MEDS ORDERED: Sodium Chloride 0.9% 10 ML Syringe FLUSH PRN (13:06)
[2019-11-27] MEDS ORDERED: Iopamidol 755 Mg/ML 100 ML Bottle IV SCH (13:15)
--- NOTE | 2019-11-27 13:52 | CT ---
Ang Chest CLINICAL HISTORY: SOB TECHNIQUE: Thin section axial contiguous tomographic sections were taken through the chest after bolus IV iodinated contrast administration. Coronal and sagittal images were reconstructed. Auto dosage reduction and iterative reconstruction techniques employed. FINDINGS: Lung guerra are free of mass or infiltrates. There is some bronchiectasis. There is moderate diffuse pulmonary thrombus bilaterally. Right ventricle and IVC are mildly prominent. There is some reflux into the hepatic veins. Patient has had previous gastric surgery This may represent some right heart strain. IMPRESSION: Moderate acute bilateral pulmonary emboli Prominence to the right ventricle atrium and reflux into the hepatic veins suggesting right heart strain. Dr. Tatum was consulted in person at the time of this dictation at 1:50 PM
--- NOTE | 2019-11-27 14:13 | PCM.CONS ---
H&P History of Present Illness - General Date of Service: 11/27/19 Admit Problem/Dx: Admission Diagnosis/Problem Admission Diagnosis/Problem Reflux Source of Information: Patient, Family, Provider History Limitations: Reports: No Limitations - History of Present Illness Initial Comments - Free Text/Narative: CC: I got so short of breath HPI: Yeimi was admitted a couple of days ago for a Karlos fundoplication. Her postoperative course was uncomplicated until earlier this morning. I was asked to see her by Dr. Tatum regarding bilateral pulmonary emboli. She reports that she had been feeling well and was ready to go home. This morning while she was walking around waiting to get ready to go home she suddenly became very short short of breath and weak. She did not have any chest pain. She did not have any fevers. No cough. She was given a dose of furosemide with concern that she may have some volume overload postoperatively but this did not provide much benefit. A CT pulmonary angiogram was undertaken and showed moderate bilateral pulmonary emboli with some evidence on CT for right heart strain. She does report a history of blood clots in both lower extremities but these were thought to be somewhat provoked and were present during cancer several years ago. She is now cancer free. She did have a right total knee arthroplasty about 7 weeks ago and has had swelling but no significant pain in that right leg since that time. She does report some unusual sensations in her right thigh area over the past several days but no pain. Postoperatively her pain is been well controlled and her vital signs at all been stable. Her heart rate suddenly jumped from 80 up to nearly 120 this morning. Headache Pain Score (Numeric/FACES): 4 - Related Data Allergies/Adverse Reactions: Allergies Allergy/AdvReac Type Severity Reaction Status Date / Time nafcillin Allergy Intermediate Cannot Verified 11/26/19 08:38 Remember Penicillins Allergy Intermediate Other Verified 11/26/19 08:38 atorvastatin Allergy Cannot Verified 11/25/19 07:50 Remember gabapentin Allergy Other Verified 11/25/19 07:51 Sulfa (Sulfonamide Allergy Headache Verified 11/25/19 07:50 Antibiotics) morphine AdvReac Intermediate Vomiting Verified 11/25/19 07:50 Home Medications: Home Meds Omeprazole [Prilosec] 20 mg PO DAILY 07/23/14 [History] fluorouraciL [Fluorouracil] 1 film TOP BID PRN 07/23/14 [History] lisinopriL [Prinivil] 5 mg PO DAILY 07/23/14 [History] rOPINIRole [Requip] 1.5 mg PO BEDTIME 07/23/14 [History] Furosemide [Lasix] 20 mg PO DAILY PRN 08/26/19 [History] Simvastatin [Zocor] 20 mg PO DAILY 10/06/19 [History] Cyanocobalamin (Vitamin B-12) [B-12] 5,000 mcg PO DAILY 11/20/19 [History] Ferrous Fumarate 324 mg PO BID 11/20/19 [History] Acetaminophen [Tylenol] 650 mg PO Q4H PRN tablet 11/27/19 [Rx] Hyoscyamine Sulfate [Levsin-Sl] 0.125 mg SL Q4HR PRN #30 tab.subl 11/27/19 [Rx] Past Medical History HEENT History: Reports: Impaired Vision Other HEENT History: wears glasses Cardiovascular History: Reports: Blood Clots/VTE/DVT, High Cholesterol, Hypertension Respiratory History: Reports: Bronchitis, Recurrent, Sleep Apnea, Other (See Below) Other Respiratory History: aspiration pneumunia Gastrointestinal History: Reports: Cholelithiasis, Diverticulosis, Gastritis, GERD, Hiatal Hernia Genitourinary History: Reports: Urinary Incontinence FLIGHT COORDINATOR History: Reports: None Musculoskeletal History: Reports: Arthritis, Fracture Other Musculoskeletal History: osteomyelitis-right knee. s/p RTKA 10/06/19 Neurological History: Reports: Other (See Below) Other Neuro History: restless legs Psychiatric History: Reports: None Endocrine/Metabolic History: Reports: Obesity/BMI 30+ Hematologic History: Reports: Anticoagulation Therapy Immunologic History: Reports: None Oncologic (Cancer) History: Reports: Basal Cell Carcinoma, Breast Dermatologic History: Reports: Benign Melanoma Other Dermatologic History: basal cell CA face - Infectious Disease History Infectious Disease History: Reports: Chicken Pox - Past Surgical History Head Surgeries/Procedures: Reports: None HEENT Surgical History: Reports: Eye Surgery, Oral Surgery, Other (See Below) Other HEENT Surgeries/Procedures: bilat. eye Cardiovascular Surgical History: Reports: None Respiratory Surgical History: Reports: None GI Surgical History: Reports: Cholecystectomy, Colonoscopy, EGD, Hernia, Abdominal, Other (See Below) Other GI Surgeries/Procedures: lymphoma removed Female Surgical History: Reports: None Neurological Surgical History: Reports: None Musculoskeletal Surgical History: Reports: Arthroscopic Knee, Knee Replacement, Other (See Below) Other Musculoskeletal Surgeries/Procedures:: tendon surg. on right knee Oncologic Surgical History: Reports: Biopsy of Breast, Lumpectomy, Other (See Below) Other Oncologic Surgeries/Procedures: lower lip/mouth surgery Dermatological Surgical History: Reports: Skin Biopsy Social & Family History - Family History Family Medical History: Noncontributory HEENT: Reports: Glaucoma, Impaired Vision, Macular Degeneration Cardiac: Reports: Bypass Respiratory: Reports: None GI: Reports: Irritable Bowel Syndrome : Reports: None Musculoskeletal: Reports: Arthritis, Other (See Below) Other Musculoskeletal Family History: RLS Neurological: Reports: None Psychiatric: Reports: None Endocrine/Metabolic: Reports: None Hematologic: Reports: None Immunologic: Reports: None Dermatologic: Reports: None Oncologic: Reports: Skin - Tobacco Use Smoking Status *Q: Never Smoker - Caffeine Use Caffeine Use: Reports: Coffee, Soda Caffeine Use Comment: 2 cups coffee. 1 pepsi daily - Alcohol Use Alcohol Use History: No - Recreational Drug Use Recreational Drug Use: No H&P Review of Systems - Review of Systems: Review Of Systems: See Below Free Text/Narrative: A complete 12 point review of systems was obtained. Pertinent positives and negatives are noted in the history of present illness. All other systems were reviewed and were negative except as noted. Exam - Exam Exam: See Below - Vital Signs Vital Signs: Last Vital Signs Temp 35.6 C L 11/27/19 10:47 Pulse 124 H 11/27/19 12:55 Resp 18 11/27/19 12:55 BP 147/86 H 11/27/19 10:47 Pulse Ox 98 11/27/19 12:55 Weight: 95.481 kg - Exam Quality Assessment: Supplemental Oxygen General: Alert, Oriented, Cooperative. No: Mild Distress HEENT: Conjunctiva Clear, Mucosa Moist & [place] Neck: Supple, Trachea Midline Lungs: Clear to Auscultation, Normal Respiratory Effort Cardiovascular: Regular Rhythm, Normal S1, Tachycardia. No: Normal S2 (Loud S2), Systolic Murmur GI/Abdominal Exam: Soft, No Distention Back Exam: Normal Inspection. No: Muscle Spasm Extremities: Pedal Edema (Swelling of right leg below the knee). No: Increased Warmth Peripheral Pulses: 2+: Dorsalis Pedis (L), Dorsalis Pedis (R) Skin: Warm, Dry, Incision (Well-healed incision over the right knee from total knee arthroplasty) Neuro Extensive - Mental Status: Alert, Oriented x3, Nl Response to Commands Neuro Extensive - Motor, Sensory, Reflexes: No: Dysarthria, Abnormal Motor, Tremor Psychiatric: Alert, Normal Affect - Patient Data Result Diagrams: 11/27/19 14:15 Shane Results Last 24 hrs: Microbiology 11/25/19 08:43 Urine Culture - Final Urine, Clean Catch MIXED MATT DAY 2 Imaging Impressions Last 24 hrs: CT chest pulmonary angiogram-images personally reviewed-moderate diffuse bilateral pulmonary emboli are noted. There does appear to be some reflux into the hepatic veins which could suggest right heart strain. No obvious mass or infiltrate in the lungs. Sepsis Event Note - Evaluation Sepsis Screening Result: No Definite Risk - Focused Exam Vital Signs: Vital Signs Temp Pulse Resp BP BP Pulse Ox 11/27/19 12:55 124 H 18 98 11/27/19 10:47 35.6 C L 113 H 14 147/86 H 94 L 11/27/19 09:25 163/98 H 11/27/19 07:29 36.3 C 92 18 163/98 H 96 11/27/19 04:00 36.1 C 82 15 156/77 H 95 Consult PN Assessment/Plan POD#: 2 Procedures: Procedures AIRWAY INHALATION TREATMENT (09/14/16) ASSAY ALKALINE PHOSPHATASE (07/27/14) ASSAY OF MAGNESIUM (08/21/17) ASSAY OF NATRIURETIC PEPTIDE (04/07/16) ASSAY OF PHOSPHORUS (08/21/17) ASSAY OF TROPONIN QUANT (04/07/16) BILIRUBIN TOTAL (07/27/14) BLOOD CULTURE FOR BACTERIA (09/14/16) BLOOD GASES ANY COMBINATION (09/14/16) C-REACTIVE PROTEIN (09/14/16) CHEST X-RAY 1 VIEW FRONTAL (09/14/16) CHEST X-RAY 2VW FRONTAL&LATL (09/14/16) COMPLETE CBC AUTOMATED (08/21/17) COMPLETE CBC W/AUTO DIFF WBC (09/14/16) COMPREHEN METABOLIC PANEL (08/21/17) CT ABDOMEN W/DYE (04/21/15) CT THORAX W/DYE (04/21/15) EGD BIOPSY SINGLE/MULTIPLE (05/10/15) ELECTROCARDIOGRAM TRACING (04/07/16) EMERGENCY DEPT VISIT (04/07/16) ENDOVENOUS RF 1ST VEIN (09/14/16) EXC NECK CONSTANTINE DEEP 5 CM/> (08/21/17) EXTREMITY STUDY (02/14/17) HEPATOBIL SYST IMAGE W/DRUG (07/09/14) HOT OR COLD PACKS THERAPY (11/17/19) HYDRATE IV INFUSION ADD-ON (09/14/16) LAP VENT/ABD HERNIA REPAIR (07/27/14) LAPAROSCOPIC CHOLECYSTECTOMY (07/27/14) MANUAL THERAPY 1/> REGIONS (11/17/19) METABOLIC PANEL TOTAL CA (09/14/16) OFFICE/OUTPATIENT VISIT EST (09/11/19) OFFICE/OUTPATIENT VISIT NEW (08/26/19) POLYSOM 6/> YRS 4/> BOB (12/08/18) PT EVAL MOD COMPLEX 30 MIN (10/17/19) ROUTINE VENIPUNCTURE (08/21/17) SELF CARE MNGMENT TRAINING (10/17/19) THER/PROPH/DIAG INJ IV PUSH (09/14/16) THER/PROPH/DIAG INJ SC/IM (09/14/16) THERAPEUTIC EXERCISES (11/17/19) TISSUE EXAM BY PATHOLOGIST (08/21/17) TISSUE EXAM BY PATHOLOGIST (05/10/15) TISSUE EXAM BY PATHOLOGIST (07/27/14) TISSUE EXAM BY PATHOLOGIST (07/27/14) TTE W/DOPPLER COMPLETE (09/09/19) TX/PRO/DX INJ NEW DRUG ADDON (09/14/16) TX/PRO/DX INJ SAME DRUG GUN NUMBERER (09/14/16) US EXAM ABDOM COMPLETE (06/12/14) WITHDRAWAL OF ARTERIAL BLOOD (09/14/16) (1) Bilateral pulmonary embolism SNOMED Code(s): 42546145 Code(s): I26.99 - OTHER PULMONARY EMBOLISM WITHOUT ACUTE COR PULMONALE Current Visit: Yes (2) Acute respiratory failure with hypoxia SNOMED Code(s): 47244548, 234702085 Code(s): J96.01 - ACUTE RESPIRATORY FAILURE WITH HYPOXIA Current Visit: Yes Problem List Initiated/Reviewed/Updated: Yes My Orders Last 24 Hours: My Active Orders 11/27/19 14:07 BASIC METABOLIC PANEL,BMP [CHEM] Urgent CBC WITH AUTO DIFF [HEME] Urgent PTT,PARTIAL THROMBOPLSTIN TIME [COAG] Urgent TROPONIN I [CHEM] Urgent 11/27/19 14:08 Heparin Sodium 5,000 units IVPUSH .BOLUS ONE 11/27/19 14:10 Transfer Patient (Change bed) [ADT] Routine 11/27/19 14:11 Pulse Oximetry [RC] ASDIRECTED 11/27/19 14:12 Cardiac Monitoring [RC] CONTINUOUS 11/27/19 14:15 Heparin Sodium/D5W [Heparin 25,000 Units in D5W 500 ML] 25,000 units in 500 ml IV TITRATE 11/27/19 21:00 PTT,PARTIAL THROMBOPLSTIN TIME [COAG] Q6H 11/28/19 03:00 PTT,PARTIAL THROMBOPLSTIN TIME [COAG] Q6H 11/28/19 09:00 PTT,PARTIAL THROMBOPLSTIN TIME [COAG] Q6H 11/28/19 15:00 PTT,PARTIAL THROMBOPLSTIN TIME [COAG] Q6H 11/28/19 21:00 PTT,PARTIAL THROMBOPLSTIN TIME [COAG] Q6H Plan: ASSESSMENT AND RECOMMENDATIONS- Acute bilateral pulmonary emboli with evidence for right heart strain-s complicated by acute respiratory failure with hypoxia. He did have a right knee arthroplasty about 7 weeks ago and I suspect the right leg is the source of the clot. She does have significant swelling of the right leg. She has a history of breast cancer but has been cancer free with recent follow-ups. She is short of breath, hypoxic and tachycardic. Blood pressure is stable currently. -Transfer to the intensive care unit -Baseline laboratory studies including troponin, CBC, BMP and PTT -Heparin infusion x48 hours -Cardiac monitoring and pulse oximetry -Anticipate 6 months of therapy, will consider transition to apixaban after heparin infusion Status post Karlos fundoplication-doing well postoperatively. -Postoperative care as per Dr. Tatum History of breast cancer-cancer free at recent checkups. Hospitalist service will continue to follow along with the patient during the acute phase of her illness. Escobar Chakraborty MD Requesting Provider: Dr. Tatum Date Consult Requested: 11/27/19 Reason for Consult: Bilateral pulmonary emboli Patient History Reviewed: Yes Admission H&P Reviewed: No (Not available) Notified Requestor: No Time Spent (in minutes): 60
[2019-11-27] MEDS ORDERED: Heparin Sodium 5,000 Units/ML Vial IVPUSH ONE (14:30)
[2019-11-27] MEDS: Heparin Sodium/D5W 25,000 UNITS/500 ML BAG IV SCH (14:59)
[2019-11-27] MEDS ORDERED: LORazepam 0.5 MG Tab PO PRN (19:53)
[2019-11-27] MEDS: rOPINIRole 0.5 MG Tab PO SCH (20:15)
[2019-11-27] MEDS ORDERED: Ondansetron 4 MG/2 ML SDV IVPUSH PRN (21:52)
[2019-11-27] MEDS ORDERED: Sodium Chloride 0.9% 1,000 ML IV ONE (22:15)
[2019-11-27] MEDS ORDERED: Sodium Chloride 0.9% 1,000 ML IV SCH (23:16)
[2019-11-28] MEDS ORDERED: Sodium Chloride 0.9% 1,000 ML IV ONE ×2 (00:40→04:10)
[2019-11-28] MEDS: Acetaminophen 325 MG Tab PO PRN (02:17)
[2019-11-28] MEDS: Pantoprazole 40 MG Tab.CR PO SCH (07:58)
[2019-11-28] MEDS: Heparin Sodium/D5W 25,000 UNITS/500 ML BAG IV SCH (08:48)
--- NOTE | 2019-11-28 08:56 | PN ---
DATE OF SERVICE: 11/28/2019 SUBJECTIVE: Yeimi had a laparoscopic Karlos on 11/25/2019. She was discharged on 11/27/2019, but while being wheeled out after discharge, she reported shortness of breath. A CT revealed bilateral pulmonary embolism. Discharge was canceled. She was admitted to room 124 in ICU. She has no other concerns or questions today. Vital signs have been stable. Pulmonary embolism managed by Escobar Chakraborty MD, hospitalist. REVIEW OF SYSTEMS: Remainder of review of systems negative for any pertinent positives and negatives. OBJECTIVE: GENERAL: Yeimi Posey is a pleasant 64-year-old female. VITAL SIGNS: Pulse 85, respirations 14, blood pressure 100/60, and O2 sats 97% on 2 L. HEART: Regular rate and rhythm. LUNGS: Clear. ABDOMEN: Abdominal binder is on. EXTREMITIES: Without peripheral edema. ASSESSMENT: Bilateral pulmonary embolism, status post Karlos fundoplication on 11/25/2019. PLAN: 1. Continue full liquid diet. 2. We will evaluate p.r.n. or in a.m. Kavya Davis PA-C /[id number]
--- NOTE | 2019-11-28 10:20 | PCM.CONSN ---
- General Info Date of Service: 11/28/19 Subjective Update: Overnight the patient had what sounds like a vagal episode with a drop in her blood pressure followed by a short episode of syncope. A CODE BLUE was called but by the time anyone arrived she had returned to normal. Blood pressures remained low and she did receive 2 fluid boluses overnight. Blood pressure is on the low side of normal this morning. She is feeling quite a bit better. She is less short of breath. No chest pain. Tolerating the heparin infusion. Still requiring supplemental oxygen. Functional Status: Reports: Pain Controlled - Review of Systems General: Denies: Fever Pulmonary: Reports: Shortness of Breath - Patient Data Vitals - Most Recent: Last Vital Signs Temp 36.4 C 11/28/19 08:00 Pulse 94 11/28/19 00:25 Resp 16 11/28/19 10:00 BP 87/59 L 11/28/19 10:00 Pulse Ox 98 11/28/19 10:00 Weight - Most Recent: 95.481 kg I&O - Last 24 Hours: Intake & Output 11/27/19 11/28/19 11/28/19 22:59 06:59 14:59 Intake Total 76 4386 300 Output Total 650 450 Balance -574 4386 -150 Lab Results Last 24 Hours: Laboratory Results - last 24 hr 11/27/19 11/27/19 11/27/19 Range/Units 14:15 14:15 14:15 WBC 9.3 (4.5-11.0) K/uL RBC 4.65 (3.30-5.50) M/uL Hgb 12.2 (12.0-15.0) g/dL Hct 39.5 (36.0-48.0) % MCV 85 (80-98) fL MCH 26 L (27-31) pg MCHC 31 L (32-36) % Plt Count 237 (150-400) K/uL Neut % (Auto) 77 H (36-66) % Lymph % (Auto) 16 L (24-44) % [place] % (Auto) 5 (2-6) % Eos % (Auto) 1 L (2-4) % Baso % (Auto) 0 (0-1) % APTT 24.0 L (27.0-36.0) sec Sodium 141 (140-148) mmol/L Potassium 4.1 (3.6-5.2) mmol/L Chloride 101 (100-108) mmol/L Carbon Dioxide 29 (21-32) mmol/L Anion Gap 11.0 (5.0-14.0) mmol/L BUN 13 (7-18) mg/dL Creatinine 1.1 H (0.6-1.0) mg/dL Est Cr Clr Drug Dosing 51.43 mL/min Estimated GFR (MDRD) 50 L (>60) Glucose 107 H (74-106) mg/dL Calcium 9.3 (8.5-10.1) mg/dL Troponin I 0.478 H* (0.000-0.056) ng/mL 11/27/19 11/27/19 11/28/19 Range/Units 20:54 20:54 03:00 WBC (4.5-11.0) K/uL RBC (3.30-5.50) M/uL Hgb (12.0-15.0) g/dL Hct (36.0-48.0) % MCV (80-98) fL MCH (27-31) pg MCHC (32-36) % Plt Count (150-400) K/uL Neut % (Auto) (36-66) % Lymph % (Auto) (24-44) % [place] % (Auto) (2-6) % Eos % (Auto) (2-4) % Baso % (Auto) (0-1) % APTT 52.8 H 52.1 H (27.0-36.0) sec Sodium (140-148) mmol/L Potassium (3.6-5.2) mmol/L Chloride (100-108) mmol/L Carbon Dioxide (21-32) mmol/L Anion Gap (5.0-14.0) mmol/L BUN (7-18) mg/dL Creatinine (0.6-1.0) mg/dL Est Cr Clr Drug Dosing mL/min Estimated GFR (MDRD) (>60) Glucose (74-106) mg/dL Calcium (8.5-10.1) mg/dL Troponin I 0.654 H* (0.000-0.056) ng/mL 11/28/19 11/28/19 Range/Units 03:00 09:00 WBC (4.5-11.0) K/uL RBC (3.30-5.50) M/uL Hgb (12.0-15.0) g/dL Hct (36.0-48.0) % MCV (80-98) fL MCH (27-31) pg MCHC (32-36) % Plt Count (150-400) K/uL Neut % (Auto) (36-66) % Lymph % (Auto) (24-44) % [place] % (Auto) (2-6) % Eos % (Auto) (2-4) % Baso % (Auto) (0-1) % APTT 54.8 H (27.0-36.0) sec Sodium (140-148) mmol/L Potassium (3.6-5.2) mmol/L Chloride (100-108) mmol/L Carbon Dioxide (21-32) mmol/L Anion Gap (5.0-14.0) mmol/L BUN (7-18) mg/dL Creatinine (0.6-1.0) mg/dL Est Cr Clr Drug Dosing mL/min Estimated GFR (MDRD) (>60) Glucose (74-106) mg/dL Calcium (8.5-10.1) mg/dL Troponin I 0.334 H* (0.000-0.056) ng/mL Shane Results Last 24 Hours: Microbiology 11/25/19 08:43 Urine Culture - Final Urine, Clean Catch MIXED MATT DAY 2 Med Orders - Current: Current Medications Acetaminophen (Tylenol) 650 mg PO Q4H PRN PRN Reason: Headache Last Admin: 11/28/19 02:17 Dose: 650 mg Documented by: Furosemide (Lasix) 20 mg PO DAILY [facility] Last Admin: 11/27/19 08:48 Dose: Not Given Documented by: Hydromorphone HCl (Dilaudid) 2 mg PO Q4H PRN PRN Reason: Pain Last Admin: 11/25/19 22:26 Dose: 2 mg Documented by: Hydroxyzine HCl (Vistaril) 100 mg IM Q4H PRN PRN Reason: pain Dextrose/Lactated Ringer's (Dextrose 5%-Lactated Ringers) 1,000 mls @ 0 mls/hr IV ASDIRECTED [facility] Last Admin: 11/27/19 10:00 Dose: 25 mls/hr Documented by: Heparin Sodium/Dextrose (Heparin 25,000 Units In D5w 500 Ml) 25,000 units in 500 mls @ 26 mls/hr IV TITRATE [facility]; Protocol Last Admin: 11/28/19 08:48 Dose: 26.1 ml/hr, 26.1 mls/hr Documented by: Sodium Chloride (Normal Saline) 1,000 mls @ 100 mls/hr IV ASDIRECTED [facility] Last Admin: 11/27/19 23:28 Dose: 100 mls/hr Documented by: Lisinopril (Prinivil) 5 mg PO DAILY [facility] Last Admin: 11/27/19 09:25 Dose: 5 mg Documented by: Lorazepam (Ativan) 0.25 mg PO Q4H PRN PRN Reason: Anxiety Last Admin: 11/27/19 20:15 Dose: 0.25 mg Documented by: Ondansetron HCl (Zofran Odt) 4 mg PO Q4H PRN PRN Reason: Nausea/Vomiting Ondansetron HCl (Zofran) 4 mg IVPUSH Q4H PRN PRN Reason: Nausea/Vomiting Last Admin: 11/27/19 21:58 Dose: 4 mg Documented by: Pantoprazole Sodium (Protonix) 40 mg PO ACBREAKFAST [facility] Last Admin: 11/28/19 07:58 Dose: 40 mg Documented by: Ropinirole HCl (Requip) 1.5 mg PO BEDTIME [facility] Last Admin: 11/27/19 20:15 Dose: 1.5 mg Documented by: Discontinued Medications Acetaminophen (Tylenol Extra Strength) 1,000 mg PO ONETIME ONE Stop: 11/25/19 07:46 Last Admin: 11/25/19 07:57 Dose: 1,000 mg Documented by: Ropivacaine 49 ml/Dexamethasone 8 mg/Epinephrine HCl 0.4 mg/ Sodium Chloride 28.6 ml 0 ml NERVRT ASDIRECTED [facility] Last Admin: 11/25/19 09:08 Dose: 80 syringe Documented by: Dexamethasone (Dexamethasone) Confirm Administered Dose 4 mg .ROUTE .STK-MED ONE Stop: 11/25/19 07:12 Droperidol (Inapsine) Confirm Administered Dose 5 mg .ROUTE .STK-MED ONE Stop: 11/25/19 09:18 Fentanyl (Sublimaze) Confirm Administered Dose 250 mcg .ROUTE .STK-MED ONE Stop: 11/25/19 07:12 Fentanyl (Sublimaze) Confirm Administered Dose 100 mcg .ROUTE .STK-[facility] ONE Stop: 11/25/19 10:19 Furosemide (Lasix) 40 mg IVPUSH ONETIME ONE Stop: 11/27/19 10:16 Last Admin: 11/27/19 10:53 Dose: 40 mg Documented by: Glycopyrrolate (Robinul) Confirm Administered Dose 1 mg .ROUTE .[facility] ONE Stop: 11/25/19 07:12 Heparin Sodium (Porcine) (Heparin Sodium) 5,000 units IVPUSH ONETIME ONE Stop: 11/27/19 14:31 Last Admin: 11/27/19 14:58 Dose: 5,000 units Documented by: Hydromorphone HCl (Dilaudid) 0.5 mg IVPUSH Q2H PRN PRN Reason: MODERATE PAIN Hydromorphone HCl (Dilaudid) 1 mg IV Q2H PRN PRN Reason: SEVERE PAIN Dextrose/Lactated Ringer's (Dextrose 5%-Lactated Ringers) 1,000 mls @ 100 mls/hr IV ASDIRECTED [facility] Last Admin: 11/26/19 00:00 Dose: 100 mls/hr Documented by: Cefoxitin Sodium 2 gm/ Sodium (Chloride) 50 mls @ 100 mls/hr IV ONETIME ONE Stop: 11/25/19 09:29 Last Admin: 11/25/19 13:07 Dose: Not Given Documented by: Ketamine HCl 50 mg/ Sodium (Chloride) 50 mls @ 18 mls/hr IV ASDIRECTED [facility] Cefazolin Sodium/Dextrose 2 gm (/ Premix) 50 mls @ 100 mls/hr IV Q8H [facility] Stop: 11/26/19 08:29 Last Admin: 11/26/19 08:04 Dose: 100 mls/hr Documented by: Dextrose/Lactated Ringer's (Dextrose 5%-Lactated Ringers) 1,000 mls @ 100 mls/hr IV ASDIRECTED [facility] Sodium Chloride (Normal Saline) 100 mls @ 3 mls/sec IV ONETIME ONE Stop: 11/27/19 13:07 Last Admin: 11/27/19 13:30 Dose: 4 mls/sec Documented by: Sodium Chloride (Normal Saline) 1,000 mls @ 999 mls/hr IV ONETIME ONE Stop: 11/27/19 23:15 Last Admin: 11/27/19 22:15 Dose: 999 mls/hr Documented by: Sodium Chloride (Normal Saline) 1,000 mls @ 500 mls/hr IV ONETIME ONE Stop: 11/28/19 02:39 Last Admin: 11/28/19 00:40 Dose: 500 mls/hr Documented by: Sodium Chloride (Normal Saline) 1,000 mls @ 500 mls/hr IV ONETIME ONE Stop: 11/28/19 06:09 Last Admin: 11/28/19 04:10 Dose: 500 mls/hr Documented by: Iopamidol (Isovue-370 (76%)) 100 ml IV . DIRECTED [facility] Stop: 11/27/19 14:00 Last Admin: 11/27/19 13:29 Dose: 100 ml Documented by: Ketamine HCl (Ketalar) 30 mg IV ASDIRECTED [facility] Labetalol HCl (Normodyne) Confirm Administered Dose 20 mg .ROUTE .STK-MED ONE Stop: 11/25/19 09:59 Metoclopramide HCl (Reglan) 10 mg IVPUSH Q8H [facility] Last Admin: 11/26/19 13:31 Dose: 10 mg Documented by: Neostigmine Methylsulfate (Neostigmine) Confirm Administered Dose 5 mg .ROUTE .STK-MED ONE Stop: 11/25/19 07:12 Ondansetron HCl (Zofran) Confirm Administered Dose 4 mg .ROUTE .STK-MED ONE Stop: 11/25/19 07:12 Ondansetron HCl (Zofran) 4 mg IVPUSH Q4H PRN PRN Reason: Nausea/Vomiting Pantoprazole Sodium (Protonix Iv) 40 mg IVPUSH Q24H [facility] Last Admin: 11/25/19 13:57 Dose: 40 mg Documented by: Propofol (Diprivan 20 Ml) Confirm Administered Dose 200 mg .ROUTE .STK-MED ONE Stop: 11/25/19 07:12 Rocuronium [place] (Zemuron) Confirm Administered Dose 50 mg .ROUTE .STK-MED ONE Stop: 11/25/19 07:12 Sodium Chloride (Saline Flush) 10 ml FLUSH ONETIME PRN PRN Reason: PER RADIOLOGY PROTOCOL Stop: 11/27/19 13:07 Last Admin: 11/27/19 13:29 Dose: 10 ml Documented by: Succinylcholine Chloride (Quelicin) Confirm Administered Dose 200 mg .ROUTE .STK-MED ONE Stop: 11/25/19 07:12 - Exam Quality Assessment: Supplemental Oxygen General: Alert, Oriented, Cooperative, No Acute Distress Lungs: Normal Respiratory Effort. No: Wheezing Cardiovascular: Regular Rate, Regular Rhythm GI/Abdominal Exam: Soft, No Distention Extremities: Pedal Edema (right leg). No: Increased Warmth Skin: Warm, Dry Psy/Mental Status: Alert, Normal Affect Sepsis Event Note - Evaluation Sepsis Screening Result: No Definite Risk - Focused Exam Vital Signs: Vital Signs Temp Pulse Resp BP Pulse Ox 11/28/19 10:00 16 87/59 L 98 11/28/19 08:00 36.4 C 12 99/71 95 11/28/19 06:05 14 100/60 97 11/28/19 05:00 18 95/60 98 11/28/19 04:46 16 86/56 L 95 11/28/19 04:44 15 69/40 L 94 L 11/28/19 04:00 16 79/43 L 94 L 11/28/19 03:20 12 89/53 L 94 L 11/28/19 03:00 14 77/53 L 95 11/28/19 02:00 36.8 C 14 89/53 L 95 11/28/19 00:25 94 16 89/60 L 96 11/28/19 00:03 17 85/56 L 96 11/28/19 00:00 16 83/44 L 97 11/27/19 23:51 16 87/53 L 97 11/27/19 23:29 19 97/58 L 100 11/27/19 23:12 17 97/55 L 96 11/27/19 22:59 16 80/51 L 95 11/27/19 22:32 19 87/53 L 94 L Consult PN Assessment/Plan POD#: 3 Procedures: Procedures AIRWAY INHALATION TREATMENT (09/14/16) ASSAY ALKALINE PHOSPHATASE (07/27/14) ASSAY OF MAGNESIUM (08/21/17) ASSAY OF NATRIURETIC PEPTIDE (04/07/16) ASSAY OF PHOSPHORUS (08/21/17) ASSAY OF TROPONIN QUANT (04/07/16) BILIRUBIN TOTAL (07/27/14) BLOOD CULTURE FOR BACTERIA (09/14/16) BLOOD GASES ANY COMBINATION (09/14/16) C-REACTIVE PROTEIN (09/14/16) CHEST X-RAY 1 VIEW FRONTAL (09/14/16) CHEST X-RAY 2VW FRONTAL&LATL (09/14/16) COMPLETE CBC AUTOMATED (08/21/17) COMPLETE CBC W/AUTO DIFF WBC (09/14/16) COMPREHEN METABOLIC PANEL (08/21/17) CT ABDOMEN W/DYE (04/21/15) CT THORAX W/DYE (04/21/15) EGD BIOPSY SINGLE/MULTIPLE (05/10/15) ELECTROCARDIOGRAM TRACING (04/07/16) EMERGENCY DEPT VISIT (04/07/16) ENDOVENOUS RF 1ST VEIN (09/14/16) EXC NECK CONSTANTINE DEEP 5 CM/> (08/21/17) EXTREMITY STUDY (02/14/17) HEPATOBIL SYST IMAGE W/DRUG (07/09/14) HOT OR COLD PACKS THERAPY (11/17/19) HYDRATE IV INFUSION ADD-ON (09/14/16) LAP VENT/ABD HERNIA REPAIR (07/27/14) LAPAROSCOPIC CHOLECYSTECTOMY (07/27/14) MANUAL THERAPY 1/> REGIONS (11/17/19) METABOLIC PANEL TOTAL CA (09/14/16) OFFICE/OUTPATIENT VISIT EST (09/11/19) OFFICE/OUTPATIENT VISIT NEW (08/26/19) POLYSOM 6/> YRS 4/> BOB (12/08/18) PT EVAL MOD COMPLEX 30 MIN (10/17/19) ROUTINE VENIPUNCTURE (08/21/17) SELF CARE MNGMENT TRAINING (10/17/19) THER/PROPH/DIAG INJ IV PUSH (09/14/16) THER/PROPH/DIAG INJ SC/IM (09/14/16) THERAPEUTIC EXERCISES (11/17/19) TISSUE EXAM BY PATHOLOGIST (08/21/17) TISSUE EXAM BY PATHOLOGIST (05/10/15) TISSUE EXAM BY PATHOLOGIST (07/27/14) TISSUE EXAM BY PATHOLOGIST (07/27/14) TTE W/DOPPLER COMPLETE (09/09/19) TX/PRO/DX INJ NEW DRUG ADDON (09/14/16) TX/PRO/DX INJ SAME DRUG GRAIN SAMPLER (09/14/16) US EXAM ABDOM COMPLETE (06/12/14) WITHDRAWAL OF ARTERIAL BLOOD (09/14/16) (1) Bilateral pulmonary embolism SNOMED Code(s): 17547645 Code(s): I26.99 - OTHER PULMONARY EMBOLISM WITHOUT ACUTE COR PULMONALE Current Visit: Yes (2) Acute respiratory failure with hypoxia SNOMED Code(s): 41815546, 738512816 Code(s): J96.01 - ACUTE RESPIRATORY FAILURE WITH HYPOXIA Current Visit: Yes Problem List Initiated/Reviewed/Updated: Yes My Orders Last 24 Hours: My Active Orders 11/27/19 14:10 Transfer Patient (Change bed) [ADT] Routine 11/27/19 14:11 Pulse Oximetry [RC] ASDIRECTED 11/27/19 14:12 Cardiac Monitoring [RC] Q6H 11/27/19 14:15 Heparin Sodium/D5W [Heparin 25,000 Units in D5W 500 ML] 25,000 units in 500 ml IV TITRATE 11/27/19 19:53 LORazepam [Ativan] 0.25 mg PO Q4H PRN 11/27/19 23:16 Sodium Chloride 0.9% [Normal Saline] 1,000 ml IV ASDIRECTED 11/28/19 15:00 PTT,PARTIAL THROMBOPLSTIN TIME [COAG] Q6H 11/28/19 21:00 PTT,PARTIAL THROMBOPLSTIN TIME [COAG] Q6H 11/29/19 05:00 BASIC METABOLIC PANEL,BMP [CHEM] Timed CBC W/O DIFF,HEMOGRAM [HEME] Timed (1) TROPONIN I [CHEM] Timed Plan: ASSESSMENT AND RECOMMENDATIONS- Acute bilateral pulmonary emboli with evidence for right heart strain-she is less short of breath today and heart rate has improved. Tolerating heparin infusion. Blood pressure on the low side of normal. She did have a mild elevation of the troponin likely related to the right heart strain. -Continue IV fluids until blood pressure stable -Heparin infusion x48 hours -Cardiac monitoring and pulse oximetry -Anticipate 6 months of therapy, will consider transition to apixaban after heparin infusion Status post Karlos fundoplication-doing well postoperatively. -Postoperative care as per Dr. Tatum History of breast cancer-cancer free at recent checkups. She did have bilateral DVT at the time of her cancer diagnosis a few years ago. She was previously anticoagulated with apixaban. Hospitalist service will continue to follow along with the patient during the acute phase of her illness. Escobar Chakraborty MD
[2019-11-28] MEDS: Lisinopril 5 MG Tab PO SCH (10:21)
[2019-11-28] MEDS: Furosemide 20 MG Tab PO SCH (10:21)
[2019-11-28] MEDS: rOPINIRole 0.5 MG Tab PO SCH (20:24)
[2019-11-29] MEDS: Heparin Sodium/D5W 25,000 UNITS/500 ML BAG IV SCH (01:40)
[2019-11-29] MEDS: Pantoprazole 40 MG Tab.CR PO SCH (07:27)
--- NOTE | 2019-11-29 07:51 | PN ---
DATE OF SERVICE: 11/29/2019 SUBJECTIVE: Yeimi's vital signs have been stable and she remains on 2 L of O2 at 93%. Oral intake on a full liquid diet following a lap Karlos is 800. Urine output is 1100. She has no concerns or questions today. REVIEW OF SYSTEMS: Remainder of review of systems negative for any pertinent positives or negatives in regard to her lap Karlos. OBJECTIVE: Exam deferred. ASSESSMENT: 1. Lap Karlos 11/25/2019. 2. Bilateral pulmonary embolism. PLAN: Continue full liquid diet. Continued management by Escobar Chakraborty MD, hospitalist. Kavya Davis PA-C /[id number]
[2019-11-29] MEDS ORDERED: Potassium Chloride 20 MEQ Tab.ER PO ONE (08:45)
[2019-11-29] MEDS ORDERED: Potassium Chloride 10 MEQ Cap.ER PO ONE (09:00)
--- NOTE | 2019-11-29 09:47 | PCM.PN ---
- General Info Date of Service: 11/29/19 Subjective Update: No acute issues overnight. She did feel little more short of breath initially this morning but feels better now. She is off supplemental oxygen and her saturations are in the mid 90s on room air. No chest pain. Blood pressures have rebounded nicely. She was able to take 3 walks in the [place] yesterday. Tolerating full liquids. Tolerating heparin infusion with no bleeding issues. Functional Status: Reports: Pain Controlled, Tolerating Diet - Review of Systems Pulmonary: Reports: Shortness of Breath - Patient Data Vitals - Most Recent: Last Vital Signs Temp 36.6 C 11/29/19 07:30 Pulse 77 11/29/19 07:30 Resp 15 11/29/19 07:30 BP 114/72 11/29/19 07:30 Pulse Ox 94 L 11/29/19 07:30 Weight - Most Recent: 95.481 kg I&O - Last 24 Hours: Intake & Output 11/28/19 11/29/19 11/29/19 22:59 06:59 14:59 Intake Total 1176 Output Total 300 Balance 876 Lab Results Last 24 Hours: Laboratory Results - last 24 hr 11/28/19 11/29/19 11/29/19 Range/Units 15:12 05:00 05:00 WBC 6.6 (4.5-11.0) K/uL RBC 3.67 (3.30-5.50) M/uL Hgb 9.5 L D (12.0-15.0) g/dL Hct 31.9 L (36.0-48.0) % MCV 87 (80-98) fL MCH 26 L (27-31) pg MCHC 30 L (32-36) % Plt Count 181 (150-400) K/uL APTT 57.4 H (27.0-36.0) sec Sodium 143 (140-148) mmol/L Potassium 3.6 (3.6-5.2) mmol/L Chloride 108 (100-108) mmol/L Carbon Dioxide 27 (21-32) mmol/L Anion Gap 8.5 (5.0-14.0) mmol/L BUN 11 (7-18) mg/dL Creatinine 1.1 H (0.6-1.0) mg/dL Est Cr Clr Drug Dosing 51.43 mL/min Estimated GFR (MDRD) 50 L (>60) Glucose 97 (74-106) mg/dL Calcium 8.3 L (8.5-10.1) mg/dL Troponin I 0.075 H* (0.000-0.056) ng/mL 11/29/19 Range/Units 05:00 WBC (4.5-11.0) K/uL RBC (3.30-5.50) M/uL Hgb (12.0-15.0) g/dL Hct (36.0-48.0) % MCV (80-98) fL MCH (27-31) pg MCHC (32-36) % Plt Count (150-400) K/uL APTT 53.4 H (27.0-36.0) sec Sodium (140-148) mmol/L Potassium (3.6-5.2) mmol/L Chloride (100-108) mmol/L Carbon Dioxide (21-32) mmol/L Anion Gap (5.0-14.0) mmol/L BUN (7-18) mg/dL Creatinine (0.6-1.0) mg/dL Est Cr Clr Drug Dosing mL/min Estimated GFR (MDRD) (>60) Glucose (74-106) mg/dL Calcium (8.5-10.1) mg/dL Troponin I (0.000-0.056) ng/mL Med Orders - Current: Current Medications Acetaminophen (Tylenol) 650 mg PO Q4H PRN PRN Reason: Headache Last Admin: 11/28/19 02:17 Dose: 650 mg Documented by: Furosemide (Lasix) 20 mg PO DAILY [facility] Last Admin: 11/28/19 10:21 Dose: Not Given Documented by: Hydromorphone HCl (Dilaudid) 2 mg PO Q4H PRN PRN Reason: Pain Last Admin: 11/25/19 22:26 Dose: 2 mg Documented by: Hydroxyzine HCl (Vistaril) 100 mg IM Q4H PRN PRN Reason: pain Dextrose/Lactated Ringer's (Dextrose 5%-Lactated Ringers) 1,000 mls @ 0 mls/hr IV ASDIRECTED [facility] Stop: 11/29/19 14:15 Last Admin: 11/27/19 10:00 Dose: 25 mls/hr Documented by: Heparin Sodium/Dextrose (Heparin 25,000 Units In D5w 500 Ml) 25,000 units in 500 mls @ 26 mls/hr IV TITRATE [facility]; Protocol Stop: 11/29/19 14:15 Last Admin: 11/29/19 01:40 Dose: 26.1 ml/hr, 26.1 mls/hr Documented by: Sodium Chloride (Normal Saline) 1,000 mls @ 100 mls/hr IV ASDIRECTED [facility] Last Admin: 11/27/19 23:28 Dose: 100 mls/hr Documented by: Lisinopril (Prinivil) 5 mg PO DAILY [facility] Last Admin: 11/28/19 10:21 Dose: Not Given Documented by: Lorazepam (Ativan) 0.25 mg PO Q4H PRN PRN Reason: Anxiety Last Admin: 11/27/19 20:15 Dose: 0.25 mg Documented by: Ondansetron HCl (Zofran Odt) 4 mg PO Q4H PRN PRN Reason: Nausea/Vomiting Ondansetron HCl (Zofran) 4 mg IVPUSH Q4H PRN PRN Reason: Nausea/Vomiting Last Admin: 11/27/19 21:58 Dose: 4 mg Documented by: Pantoprazole Sodium (Protonix) 40 mg PO ACBREAKFAST [facility] Last Admin: 11/29/19 07:27 Dose: 40 mg Documented by: Ropinirole HCl (Requip) 1.5 mg PO BEDTIME [facility] Last Admin: 11/28/19 20:24 Dose: 1.5 mg Documented by: Discontinued Medications Acetaminophen (Tylenol Extra Strength) 1,000 mg PO ONETIME ONE Stop: 11/25/19 07:46 Last Admin: 11/25/19 07:57 Dose: 1,000 mg Documented by: Ropivacaine 49 ml/Dexamethasone 8 mg/Epinephrine HCl 0.4 mg/ Sodium Chloride 28.6 ml 0 ml NERVRT ASDIRECTED [facility] Last Admin: 11/25/19 09:08 Dose: 80 syringe Documented by: Dexamethasone (Dexamethasone) Confirm Administered Dose 4 mg .ROUTE .STK-MED ONE Stop: 11/25/19 07:12 Droperidol (Inapsine) Confirm Administered Dose 5 mg .ROUTE .STK-MED ONE Stop: 11/25/19 09:18 Fentanyl (Sublimaze) Confirm Administered Dose 250 mcg .ROUTE .STK-MED ONE Stop: 11/25/19 07:12 Fentanyl (Sublimaze) Confirm Administered Dose 100 mcg .ROUTE .[facility] ONE Stop: 11/25/19 10:19 Furosemide (Lasix) 40 mg IVPUSH ONETIME ONE Stop: 11/27/19 10:16 Last Admin: 11/27/19 10:53 Dose: 40 mg Documented by: Glycopyrrolate (Robinul) Confirm Administered Dose 1 mg .ROUTE .[facility] ONE Stop: 11/25/19 07:12 Heparin Sodium (Porcine) (Heparin Sodium) 5,000 units IVPUSH ONETIME ONE Stop: 11/27/19 14:31 Last Admin: 11/27/19 14:58 Dose: 5,000 units Documented by: Hydromorphone HCl (Dilaudid) 0.5 mg IVPUSH Q2H PRN PRN Reason: MODERATE PAIN Hydromorphone HCl (Dilaudid) 1 mg IV Q2H PRN PRN Reason: SEVERE PAIN Dextrose/Lactated Ringer's (Dextrose 5%-Lactated Ringers) 1,000 mls @ 100 mls/hr IV ASDIRECTED [facility] Last Admin: 11/26/19 00:00 Dose: 100 mls/hr Documented by: Cefoxitin Sodium 2 gm/ Sodium (Chloride) 50 mls @ 100 mls/hr IV ONETIME ONE Stop: 11/25/19 09:29 Last Admin: 11/25/19 13:07 Dose: Not Given Documented by: Ketamine HCl 50 mg/ Sodium (Chloride) 50 mls @ 18 mls/hr IV ASDIRECTED [facility] Cefazolin Sodium/Dextrose 2 gm (/ Premix) 50 mls @ 100 mls/hr IV Q8H [facility] Stop: 11/26/19 08:29 Last Admin: 11/26/19 08:04 Dose: 100 mls/hr Documented by: Dextrose/Lactated Ringer's (Dextrose 5%-Lactated Ringers) 1,000 mls @ 100 mls/hr IV ASDIRECTED [facility] Sodium Chloride (Normal Saline) 100 mls @ 3 mls/sec IV ONETIME ONE Stop: 11/27/19 13:07 Last Admin: 11/27/19 13:30 Dose: 4 mls/sec Documented by: Sodium Chloride (Normal Saline) 1,000 mls @ 999 mls/hr IV ONETIME ONE Stop: 11/27/19 23:15 Last Admin: 11/27/19 22:15 Dose: 999 mls/hr Documented by: Sodium Chloride (Normal Saline) 1,000 mls @ 500 mls/hr IV ONETIME ONE Stop: 11/28/19 02:39 Last Admin: 11/28/19 00:40 Dose: 500 mls/hr Documented by: Sodium Chloride (Normal Saline) 1,000 mls @ 500 mls/hr IV ONETIME ONE Stop: 11/28/19 06:09 Last Admin: 11/28/19 04:10 Dose: 500 mls/hr Documented by: Iopamidol (Isovue-370 (76%)) 100 ml IV . DIRECTED [facility] Stop: 11/27/19 14:00 Last Admin: 11/27/19 13:29 Dose: 100 ml Documented by: Ketamine HCl (Ketalar) 30 mg IV ASDIRECTED [facility] Labetalol HCl (Normodyne) Confirm Administered Dose 20 mg .ROUTE .STK-MED ONE Stop: 11/25/19 09:59 Metoclopramide HCl (Reglan) 10 mg IVPUSH Q8H [facility] Last Admin: 11/26/19 13:31 Dose: 10 mg Documented by: Neostigmine Methylsulfate (Neostigmine) Confirm Administered Dose 5 mg .ROUTE .STK-MED ONE Stop: 11/25/19 07:12 Ondansetron HCl (Zofran) Confirm Administered Dose 4 mg .ROUTE .STK-MED ONE Stop: 11/25/19 07:12 Ondansetron HCl (Zofran) 4 mg IVPUSH Q4H PRN PRN Reason: Nausea/Vomiting Pantoprazole Sodium (Protonix Iv) 40 mg IVPUSH Q24H [facility] Last Admin: 11/25/19 13:57 Dose: 40 mg Documented by: Potassium Chloride (Potassium Chloride) 40 meq PO ONETIME ONE Stop: 11/29/19 09:01 Last Admin: 11/29/19 08:56 Dose: 40 meq Documented by: Propofol (Diprivan 20 Ml) Confirm Administered Dose 200 mg .ROUTE .STK-MED ONE Stop: 11/25/19 07:12 Rocuronium [place] (Zemuron) Confirm Administered Dose 50 mg .ROUTE .STK-MED ONE Stop: 11/25/19 07:12 Sodium Chloride (Saline Flush) 10 ml FLUSH ONETIME PRN PRN Reason: PER RADIOLOGY PROTOCOL Stop: 11/27/19 13:07 Last Admin: 11/27/19 13:29 Dose: 10 ml Documented by: Succinylcholine Chloride (Quelicin) Confirm Administered Dose 200 mg .ROUTE .STK-MED ONE Stop: 11/25/19 07:12 - Exam Quality Assessment: No: Supplemental Oxygen General: Alert, Oriented, Cooperative, No Acute Distress Lungs: Normal Respiratory Effort. No: Wheezing Cardiovascular: Regular Rate, Regular Rhythm GI/Abdominal Exam: Soft, No Distention Skin: Warm, Dry Psy/Mental Status: Alert, Normal Affect Sepsis Event Note - Evaluation Sepsis Screening Result: No Definite Risk - Focused Exam Vital Signs: Vital Signs Temp Pulse Resp BP Pulse Ox 11/29/19 07:30 36.6 C 77 15 114/72 94 L 11/29/19 04:00 78 17 139/82 93 L 11/29/19 02:00 79 16 153/87 H 92 L 11/29/19 00:00 36.7 C 20 123/74 94 L 11/28/19 22:00 17 131/74 95 - Problem List & Annotations (1) Bilateral pulmonary embolism SNOMED Code(s): 71068619 Code(s): I26.99 - OTHER PULMONARY EMBOLISM WITHOUT ACUTE COR PULMONALE Status: Acute Current Visit: Yes (2) Acute respiratory failure with hypoxia SNOMED Code(s): 77040042, 975296443 Code(s): J96.01 - ACUTE RESPIRATORY FAILURE WITH HYPOXIA Status: Acute Current Visit: Yes - Problem List Review Problem List Initiated/Reviewed/Updated: Yes - My Orders Last 24 Hours: My Active Orders 11/29/19 09:45 Convert IV to Saline Lock [OM.PC] Routine 11/29/19 19:00 Apixaban [Eliquis] 5 mg PO BID - Plan Plan:: ASSESSMENT AND PLAN- Acute bilateral pulmonary emboli with evidence for right heart strain-she is less short of breath today and heart rate has has normalized. Troponin level is nearly down to normal. Clinically doing quite well. -Saline lock IV -Heparin infusion x48 hours (end at 2:15 this afternoon) -Initiate apixaban this evening -Cardiac monitoring and pulse oximetry -Anticipate 6 months of therapy Status post Karlos fundoplication-doing well postoperatively. -Postoperative care as per Dr. Tatum History of breast cancer-cancer free at recent checkups. She did have bilateral DVT at the time of her cancer diagnosis a few years ago. She was previously anticoagulated with apixaban. Disposition-I would anticipate she will be ready for discharge tomorrow if the trend continues Escobar Chakraborty MD
[2019-11-29] MEDS ORDERED: Apixaban 5 MG Tab PO ONE (18:45)
[2019-11-29] MEDS: rOPINIRole 0.5 MG Tab PO SCH (20:13)
[2019-11-30] MEDS: Pantoprazole 40 MG Tab.CR PO SCH (07:24)
[2019-11-30 08:54] VITALS: BP 165/90; PULSE 94
[2019-11-30] MEDS ORDERED: Apixaban 5 MG Tab PO SCH (09:00)
--- NOTE | 2019-11-30 09:47 | PCM.DCSUM1 ---
Discharge Summary - Hospital Course Brief History: 64-year-old female with history of esophageal reflux, recent right knee arthroplasty who was admitted for surgical management of reflux with a Karlos fundoplication. Her hospital stay was complicated by bilateral pulmonary emboli with hypoxic respiratory failure. Diagnosis: Stroke: No - Discharge Data Discharge Date: 11/30/19 Discharge Disposition: Home, Self-Care 01 Condition: Good - Referral to Home Health Primary Care Physician: Sheldon Chavez MD - Discharge Diagnosis/Problem(s) (1) Bilateral pulmonary embolism SNOMED Code(s): 25826419 ICD Code: I26.99 - OTHER PULMONARY EMBOLISM WITHOUT ACUTE COR PULMONALE Status: Acute (2) Acute respiratory failure with hypoxia SNOMED Code(s): 79530551, 470964050 ICD Code: J96.01 - ACUTE RESPIRATORY FAILURE WITH HYPOXIA Status: Acute - Patient Summary/Data Consults: Consultations 11/25/19 12:21 Respiratory Care Assess and Treatment [CONS] Routine Comment: Physician Instructions: Post -Op Pneumonia Prevention 11/26/19 07:15 Consult to Substation Superintendent [CONS] Routine Comment: Physician Instructions: Quantity: Reason for Consult: full liquid diet - lap karlos 11/26/19 08:30 Consult to Dietary [Consult to Substation Superintendent] [CONS] Routine Comment: Physician Instructions: F/U Karlos diet Quantity: 1 Reason for Consult: Karlos Diet Special Instructions: left message at [phone] Date Notified: 11/25/19 Time Notified: 12:38 Hospital Course: Kaylee was admitted for an elective Karlos fundoplication to help manage her esophageal reflux disease. She had a fairly uneventful postoperative period and did well. On the morning of the initial plan to discharge she suddenly became very short of breath and felt like she was going to pass out. She was hypoxic and tachycardic. All of this started very suddenly. A CT pulmonary angiogram was obtained and showed significant bilateral pulmonary emboli with evidence for right heart strain. She was transferred to the intensive care unit and started on a heparin infusion. Over the first 24 hours we saw a decrease in her heart rate and improvement in symptoms. Her blood pressure was on the low side and she did require some IV fluid boluses. Over the second 24 hours we saw a resolution of her hypoxic respiratory failure and significant improvement in her symptoms. Her blood pressure normalized. She has tolerated the infusion well without any significant issues other than a very mild nosebleed that was self-limited. She has been transitioned to oral apixaban and continues to do well. I believe she is safe for discharge at this time. She is off oxygen and her vital signs have all been stable. I suspect that the pulmonary emboli resulted from a DVT that was probably related to a knee surgery performed several weeks ago. I do not believe this has anything to do with the most recent surgery. The plan is for 6 months of systemic anticoagulation as this was a provoked event. Patient does have close surgical follow-up. - Patient Instructions Diet: Drink 8-10+ Glasses/Day, Full Liquid Diet (for 2 weeks ) Activity: No Lifting Over 10 Pounds (for 2 weeks ) Activity, Other: Walk at least 6 times daily inside your home or outside if someone is with Driving: Do Not Drive (for 1 week. ) Showering/Bathing: May Shower Wound/Incision Care: Keep Operative Site/Wound Site Clean and Dry Notify Provider of: Fever, Increased Pain, Nausea and/or Vomiting Other/Special Instructions: Use incentive inspirometer 10 times every hour while awake for 1 week. During the hospital stay you had sudden onset of shortness of breath and were diagnosed with bilateral pulmonary emboli. Most likely these were a result of a blood clot in your right leg that formed after your surgery several weeks ago. Your condition has been improving with anticoagulant therapy. I recommend 6 months of anticoagulation with apixaban (Eliquis). Please take 5 mg twice daily for 6 months. Your first dose outside of the hospital stay will be due tonight. You may increase your activity towards your normal amount. If you become short of breath or fatigue you should take a break and relax. - Discharge Plan *PRESCRIPTION DRUG MONITORING PROGRAM REVIEWED*: Not Applicable *COPY OF PRESCRIPTION DRUG MONITORING REPORT IN PATIENT SARAI: Not Applicable Prescriptions/Med Rec: Apixaban [Eliquis] 5 mg PO BID #60 tablet Hyoscyamine Sulfate [Levsin-Sl] 0.125 mg SL Q4HR PRN #30 tab.subl PRN Reason: Esophageal spasms Home Medications: Home Meds Omeprazole [Prilosec] 20 mg PO DAILY 07/23/14 [History] fluorouraciL [Fluorouracil] 1 film TOP BID PRN 07/23/14 [History] lisinopriL [Prinivil] 5 mg PO DAILY 07/23/14 [History] rOPINIRole [Requip] 1.5 mg PO BEDTIME 07/23/14 [History] Furosemide [Lasix] 20 mg PO DAILY PRN 08/26/19 [History] Simvastatin [Zocor] 20 mg PO DAILY 10/06/19 [History] Cyanocobalamin (Vitamin B-12) [B-12] 5,000 mcg PO DAILY 11/20/19 [History] Ferrous Fumarate 324 mg PO BID 11/20/19 [History] Acetaminophen [Tylenol] 650 mg PO Q4H PRN tablet 11/27/19 [Rx] Hyoscyamine Sulfate [Levsin-Sl] 0.125 mg SL Q4HR PRN #30 tab.subl 11/27/19 [Rx] Apixaban [Eliquis] 5 mg PO BID #60 tablet 11/30/19 [Rx] Patient Handouts: Pulmonary Embolism, Apixaban oral tablets, Laparoscopic Karlos Fundoplication, Care After, Preventing Constipation After Surgery Referrals: Kavya Davis PA-C [Physician Envelope Sealer Operator] - 12/09/19 9:00 am (follow up appointment on December 08 at 9am with Kavya Davis. Please arrive 15 minutes early for check in. ) - Discharge Summary/Plan Comment DC Time >30 min.: Yes (35-medication counseling ) - Patient Data Vitals - Most Recent: Last Vital Signs Temp 36.6 C 11/30/19 08:54 Pulse 94 11/30/19 08:54 Resp 16 11/30/19 08:54 BP 165/90 H 11/30/19 08:54 Pulse Ox 95 11/30/19 08:54 Weight - Most Recent: 95.481 kg I&O - Last 24 hours: Intake & Output 11/29/19 11/30/19 11/30/19 22:59 06:59 14:59 Intake Total 400 Output Total 200 300 Balance 200 -300 Med Orders - Current: Current Medications Acetaminophen (Tylenol) 650 mg PO Q4H PRN PRN Reason: Headache Last Admin: 11/28/19 02:17 Dose: 650 mg Documented by: Apixaban (Eliquis) 5 mg PO BID [facility] Last Admin: 11/30/19 08:57 Dose: 5 mg Documented by: Furosemide (Lasix) 20 mg PO DAILY [facility] Last Admin: 11/28/19 10:21 Dose: Not Given Documented by: Hydromorphone HCl (Dilaudid) 2 mg PO Q4H PRN PRN Reason: Pain Last Admin: 11/25/19 22:26 Dose: 2 mg Documented by: Hydroxyzine HCl (Vistaril) 100 mg IM Q4H PRN PRN Reason: pain Lisinopril (Prinivil) 5 mg PO DAILY [facility] Last Admin: 11/28/19 10:21 Dose: Not Given Documented by: Lorazepam (Ativan) 0.25 mg PO Q4H PRN PRN Reason: Anxiety Last Admin: 11/27/19 20:15 Dose: 0.25 mg Documented by: Ondansetron HCl (Zofran Odt) 4 mg PO Q4H PRN PRN Reason: Nausea/Vomiting Ondansetron HCl (Zofran) 4 mg IVPUSH Q4H PRN PRN Reason: Nausea/Vomiting Last Admin: 11/27/19 21:58 Dose: 4 mg Documented by: Pantoprazole Sodium (Protonix) 40 mg PO ACBREAKFAST [facility] Last Admin: 11/30/19 07:24 Dose: 40 mg Documented by: Ropinirole HCl (Requip) 1.5 mg PO BEDTIME [facility] Last Admin: 11/29/19 20:13 Dose: 1.5 mg Documented by: Discontinued Medications Acetaminophen (Tylenol Extra Strength) 1,000 mg PO ONETIME ONE Stop: 11/25/19 07:46 Last Admin: 11/25/19 07:57 Dose: 1,000 mg Documented by: Apixaban (Eliquis) 5 mg PO ONETIME ONE Stop: 11/29/19 18:46 Last Admin: 11/29/19 18:36 Dose: 5 mg Documented by: Ropivacaine 49 ml/Dexamethasone 8 mg/Epinephrine HCl 0.4 mg/ Sodium Chloride 28.6 ml 0 ml NERVRT ASDIRECTED [facility] Last Admin: 11/25/19 09:08 Dose: 80 syringe Documented by: Dexamethasone (Dexamethasone) Confirm Administered Dose 4 mg .ROUTE .STK-MED ONE Stop: 11/25/19 07:12 Droperidol (Inapsine) Confirm Administered Dose 5 mg .ROUTE .STK-MED ONE Stop: 11/25/19 09:18 Fentanyl (Sublimaze) Confirm Administered Dose 250 mcg .ROUTE .STK-MED ONE Stop: 11/25/19 07:12 Fentanyl (Sublimaze) Confirm Administered Dose 100 mcg .ROUTE .STK-MED ONE Stop: 11/25/19 10:19 Furosemide (Lasix) 40 mg IVPUSH ONETIME ONE Stop: 11/27/19 10:16 Last Admin: 11/27/19 10:53 Dose: 40 mg Documented by: Glycopyrrolate (Robinul) Confirm Administered Dose 1 mg .ROUTE .STK-MED ONE Stop: 11/25/19 07:12 Heparin Sodium (Porcine) (Heparin Sodium) 5,000 units IVPUSH ONETIME ONE Stop: 11/27/19 14:31 Last Admin: 11/27/19 14:58 Dose: 5,000 units Documented by: Hydromorphone HCl (Dilaudid) 0.5 mg IVPUSH Q2H PRN PRN Reason: MODERATE PAIN Hydromorphone HCl (Dilaudid) 1 mg IV Q2H PRN PRN Reason: SEVERE PAIN Dextrose/Lactated Ringer's (Dextrose 5%-Lactated Ringers) 1,000 mls @ 100 mls/hr IV ASDIRECTED [facility] Last Admin: 11/26/19 00:00 Dose: 100 mls/hr Documented by: Cefoxitin Sodium 2 gm/ Sodium (Chloride) 50 mls @ 100 mls/hr IV ONETIME ONE Stop: 11/25/19 09:29 Last Admin: 11/25/19 13:07 Dose: Not Given Documented by: Ketamine HCl 50 mg/ Sodium (Chloride) 50 mls @ 18 mls/hr IV ASDIRECTED [facility] Cefazolin Sodium/Dextrose 2 gm (/ Premix) 50 mls @ 100 mls/hr IV Q8H [facility] Stop: 11/26/19 08:29 Last Admin: 11/26/19 08:04 Dose: 100 mls/hr Documented by: Dextrose/Lactated Ringer's (Dextrose 5%-Lactated Ringers) 1,000 mls @ 100 mls/hr IV ASDIRECTED [facility] Dextrose/Lactated Ringer's (Dextrose 5%-Lactated Ringers) 1,000 mls @ 0 mls/hr IV ASDIRECTED [facility] Stop: 11/29/19 14:15 Last Admin: 11/27/19 10:00 Dose: 25 mls/hr Documented by: Sodium Chloride (Normal Saline) 100 mls @ 3 mls/sec IV ONETIME ONE Stop: 11/27/19 13:07 Last Admin: 11/27/19 13:30 Dose: 4 mls/sec Documented by: Heparin Sodium/Dextrose (Heparin 25,000 Units In D5w 500 Ml) 25,000 units in 500 mls @ 26 mls/hr IV TITRATE [facility]; Protocol Stop: 11/29/19 14:15 Last Admin: 11/29/19 01:40 Dose: 26.1 ml/hr, 26.1 mls/hr Documented by: Sodium Chloride (Normal Saline) 1,000 mls @ 999 mls/hr IV ONETIME ONE Stop: 11/27/19 23:15 Last Admin: 11/27/19 22:15 Dose: 999 mls/hr Documented by: Sodium Chloride (Normal Saline) 1,000 mls @ 100 mls/hr IV ASDIRECTED [facility] Last Admin: 11/27/19 23:28 Dose: 100 mls/hr Documented by: Sodium Chloride (Normal Saline) 1,000 mls @ 500 mls/hr IV ONETIME ONE Stop: 11/28/19 02:39 Last Admin: 11/28/19 00:40 Dose: 500 mls/hr Documented by: Sodium Chloride (Normal Saline) 1,000 mls @ 500 mls/hr IV ONETIME ONE Stop: 11/28/19 06:09 Last Admin: 11/28/19 04:10 Dose: 500 mls/hr Documented by: Iopamidol (Isovue-370 (76%)) 100 ml IV . DIRECTED [facility] Stop: 11/27/19 14:00 Last Admin: 11/27/19 13:29 Dose: 100 ml Documented by: Ketamine HCl (Ketalar) 30 mg IV ASDIRECTED [facility] Labetalol HCl (Normodyne) Confirm Administered Dose 20 mg .ROUTE .STK-MED ONE Stop: 11/25/19 09:59 Metoclopramide HCl (Reglan) 10 mg IVPUSH Q8H [facility] Last Admin: 11/26/19 13:31 Dose: 10 mg Documented by: Neostigmine Methylsulfate (Neostigmine) Confirm Administered Dose 5 mg .ROUTE .STK-MED ONE Stop: 11/25/19 07:12 Ondansetron HCl (Zofran) Confirm Administered Dose 4 mg .ROUTE .STK-MED ONE Stop: 11/25/19 07:12 Ondansetron HCl (Zofran) 4 mg IVPUSH Q4H PRN PRN Reason: Nausea/Vomiting Pantoprazole Sodium (Protonix Iv) 40 mg IVPUSH Q24H [facility] Last Admin: 11/25/19 13:57 Dose: 40 mg Documented by: Potassium Chloride (Potassium Chloride) 40 meq PO ONETIME ONE Stop: 11/29/19 09:01 Last Admin: 11/29/19 08:56 Dose: 40 meq Documented by: Propofol (Diprivan 20 Ml) Confirm Administered Dose 200 mg .ROUTE .STK-MED ONE Stop: 11/25/19 07:12 Rocuronium [place] (Zemuron) Confirm Administered Dose 50 mg .ROUTE .STK-MED ONE Stop: 11/25/19 07:12 Sodium Chloride (Saline Flush) 10 ml FLUSH ONETIME PRN PRN Reason: PER RADIOLOGY PROTOCOL Stop: 11/27/19 13:07 Last Admin: 11/27/19 13:29 Dose: 10 ml Documented by: Succinylcholine Chloride (Quelicin) Confirm Administered Dose 200 mg .ROUTE .STK-MED ONE Stop: 11/25/19 07:12
--- NOTE | 2019-12-02 12:42 | PN ---
DATE OF SERVICE: 11/30/2019 SUBJECTIVE: Yeimi tells me that she will possibly be going home today on Eliquis 5 mg p.o. b.i.d. for her pulmonary embolism. In regard to laparoscopic Karlos fundoplication, she reports that she is having no difficulty swallowing. Denies any pain. Oral intake in the past 24 hours is 600, urine output 1250. REVIEW OF SYSTEMS: Remainder of review of systems negative for any pertinent positives and negatives. OBJECTIVE: Deferred. ASSESSMENT: 1. Status post laparoscopic Karlos fundoplication, 11/25/2019. 2. Bilateral pulmonary embolism. PLAN: Discharge summary from [facility] Karlos reviewed. Follow up as already scheduled. Further discharge instructions per hospitalist. Kavya Davis PA-C /[phone]
--- NOTE | 2019-12-03 14:52 | OR ---
DATE OF PROCEDURE: 11/25/2019 SURGEON: Jaxson Tatum MD PREOPERATIVE DIAGNOSIS: Gastroesophageal reflux disease refractory to medical management. POSTOPERATIVE DIAGNOSIS: Gastroesophageal reflux refractory to medical management associated with large paraesophageal diaphragmatic hernia. OPERATIVE PROCEDURES: 1. Esophagogastroduodenoscopy with biopsies of esophagogastric junction (99625). 2. Laparoscopic Karlos fundoplication with repair of paraesophageal diaphragmatic hernia with mesh (67408). ANESTHESIA: General. ADMIN ASSISTANT: Kavya Davis PA-C INDICATIONS FOR PROCEDURE: This is a 64-year-old female presenting with severe gastroesophageal reflux disease refractory to medical management. This resulted in some aspiration episodes in the recent months. The plan is to proceed with a laparoscopic Karlos fundoplication with or without mesh. She is in somewhat of a [place], and so we are doing the surveillance upper endoscopy concurrently to rule out problems such as underlying Silveira's esophagus. Potential risks of the procedure including bleeding, infection, injury to the viscera in the area, problems with fundoplication such as dysphagia, gas bloat syndrome, disorders of gastric emptying rate, incomplete relief of reflux symptoms were reviewed along with the remote possibility of cardiopulmonary, septic, or hemorrhagic complications leading to , and the patient wishes to proceed. DETAILS OF PROCEDURE: The patient was taken to the operating room, and after general endotracheal anesthesia was induced, placed in a lithotomy position and the abdomen prepped and draped. 15 cm inferior and 5 cm left of the xiphoid process, a transverse incision was made and the peritoneal cavity entered under direct vision with an Optiview trocar, inflated to 15 mmHg pressure with CO2. Laparoscope was then reinserted. No underlying trocar insertion site injuries were seen. Following this, 4 additional trocars were placed across the upper and mid abdomen. At this point, an upper GI endoscope was placed orally and then ventilated through the length of the esophagus and the stomach with retroflexion view of the fundus, and thereafter through the pyloric channel and into the proximal duodenum. The second portion of the duodenum at that point was being compressed via laparoscopic instrumentation so as to avoid overfilling of the small bowel. The patient was noted to have moderate-sized paraesophageal type hernia which was evident on retroflexion within the stomach. There was some redness and friability of distal esophageal mucosa and some slight upward extension of the gastroesophageal junction mucosal line above the upper gastric folds. There is no plaquing or ulceration or signs of neoplastic change grossly. At this point, multiple biopsies were obtained from esophagogastric junction, sent for histologic evaluation. Minimal bleeding from biopsy sites was seen and the procedure was then concluded with evacuation of air from the stomach as the scope was withdrawn. Attention was then taken to the fundoplication. The liver was retracted anteriorly and the hernia reduced. This contained some omentum coursing anterior to the course of the esophagus and esophagogastric junction. After the hernia was reduced, the peritoneum overlying was incised and reflected downward. The crura was then dissected from each side of the distal esophagus and a retroesophageal window then constructed. Further dissection of the esophagus from soft tissue attachments was accomplished with Harmonic scalpel such that a roughly 5 cm intraabdominal esophageal length was established. A posterior repair of the crura was then accomplished with 0 Ethibond sutures reinforced with PTFE pledgets. Due to the thinness of the musculature, Phasix ST mesh was cut such that it was fit over the crural repair in somewhat of a horseshoe type configuration, affixed to the crura on each side with titanium tacking screws. The omentum from the mid to greater curvature upward was then divided away from the greater curvature of the stomach. This continued up through the short gastric vessels including the highest and posterior short gastric vessels. This resulted in satisfactory mobile fundus. The fundus was then retrieved through the retroesophageal window. The partner integration planner then passed a guidewire orally and into the stomach. Over this, a 54-[place] Savary dilator was placed and a three-stitch 2 cm fundoplication was accomplished with 0 Ethibond sutures reinforced with PTFE pledgets. Two sutures between the diaphragm and the fundoplication were then also placed with a same-stitch pledget combination to help maintain the proper location of the fundoplication. At that point, dilator and wire were removed. The fundoplication was found to be satisfactorily floppy. No further problems were noted. At this point, trocars were removed and the peritoneal cavity deflated. Incision closed with some 4-0 Vicryl skin stitch and the patient prior to closure had bilateral transversus abdominis plane blocks placed as well. The patient was taken to the recovery room in satisfactory condition. There were no evident complications. Physician merchandising assistant, Kavya Davis, played an essential role in assisting in this case, helping to position the patient, retract structures as needed, as well as suturing and cutting sutures when indicated. Her presence improved patient safety and decreased operative time. Jaxson Tatum MD /[id number]
== END 2019-11-30 10:37 | disposition home or self-care (01) | DRG 220 ==
LOC: JP.MS 07:20 → JP.SDS 07:21 → JP.MS 11:58 → EDSTATUS 13:15 → JP.ICU 11-27 14:35
PROVIDERS: ADMIT Surgery; ATTEND Surgery
PROC: 0DV44ZZ Restriction of Esophagogastric Junction, Percutaneous Endoscopic Approach (ICD-10-PCS; principal; 2019-11-25)
PROC: 0BQT4ZZ Repair Diaphragm, Percutaneous Endoscopic Approach (ICD-10-PCS; 2019-11-25)
PROC: 0DB48ZX Excision of Esophagogastric Junction, Via Natural or Artificial Opening Endoscopic, Diagnostic (ICD-10-PCS; 2019-11-25)
DX: K21.9 Gastro-esophageal reflux disease without esophagitis (principal); I26.99 Other pulmonary embolism without acute cor pulmonale; J96.01 Acute respiratory failure with hypoxia; T81.72XA Complication of vein following a procedure, not elsewhere classified, initial encounter; M19.90 Unspecified osteoarthritis, unspecified site; K44.9 Diaphragmatic hernia without obstruction or gangrene; E78.00 Pure hypercholesterolemia, unspecified; G25.81 Restless legs syndrome; I10 Essential (primary) hypertension; E78.5 Hyperlipidemia, unspecified; M17.11 Unilateral primary osteoarthritis, right knee; Z96.651 Presence of right artificial knee joint; N30.01 Acute cystitis with hematuria; I51.9 Heart disease, unspecified; E66.9 Obesity, unspecified; Z85.3 Personal history of malignant neoplasm of breast; Z86.718 Personal history of other venous thrombosis and embolism; Z79.01 Long term (current) use of anticoagulants; Z79.899 Other long term (current) drug therapy; Z88.0 Allergy status to penicillin; Z88.2 Allergy status to sulfonamides; Z88.5 Allergy status to narcotic agent; Z68.33 Body mass index [BMI] 33.0-33.9, adult
CPT/HCPCS: 36415; 71275; 71275-26; 80048; 81001; 84484; 85025; 85027; 85730; 87086; 94762; A9270-GY; C1713; C1781; C9113; J0171; J0330; J0690; J0694; J1100; J1644; J1790; J1940; J2405; J2704; J2710; J2765; J2795; J3010; J3490; J7030; J7050; J7121; Q9967

== ENCOUNTER 2022-11-20 08:04 | Emergency (ER) | payer MEDICARE, BC ==
[2022-11-20 08:23] VITALS: BP 162/92; PULSE 72
[2022-11-20] MEDS ORDERED: predniSONE 20 MG Tab PO ONE (08:36)
[2022-11-20] MEDS ORDERED: predniSONE 20 MG Tab ONE (08:47)
== END 2022-11-20 08:57 | disposition home or self-care (01) ==
LOC: JP.ED 08:04
DX: L25.8 Unspecified contact dermatitis due to other agents (principal); Z88.1 Allergy status to other antibiotic agents; Z88.2 Allergy status to sulfonamides; Z88.5 Allergy status to narcotic agent; Z88.8 Allergy status to other drugs, medicaments and biological substances
CPT/HCPCS: 99282; J7512